=== PATIENT | female | born 1965 | race Caucasian/White ===

== ENCOUNTER 2021-01-27 13:55 | Inpatient (IN) | payer SELFPAY ==
[~2021-01-27] VITALS: Ht 172.7 cm; Wt 67.1 kg
[2021-01-27] MEDS ORDERED: ONDANSETRON PF 4 MG/2 ML VIAL. IVP ONE (14:15)
[2021-01-27] MEDS ORDERED: FAMOTIDINE 20 MG/2 ML VIAL IVP ONE (14:15)
[2021-01-27] MEDS ORDERED: IV NORMAL SALINE 1,000ML 1,000 ML IV ONE ×2 (14:15→17:30)
[2021-01-27 14:20] LABS: BASO % 1 % (0-3); EOS % 0 % (0-3); HEMOGLOBIN 15.8 g/dL (12.0-15.5); LYMPH # 1.4 x10^3/uL (1.0-4.8); LYMPH % 28 % (24-48); MEAN CORPUSCULAR HEMOGLOBIN 29 pg (25-35); MEAN CORPUSCULAR HGB CONC 34 g/dL (31-37); MEAN CORPUSCULAR VOLUME 87 fL (79-100); MONO # 0.5 x10^3/uL (0.0-1.1); MONO % 10 % (0-9); NEUT % 62 % (31-73); PLATELET COUNT 221 x10^3/uL (140-400); RED BLOOD COUNT 5.38 x10^6/uL (3.50-5.40); RED CELL DISTRIBUTION WIDTH 13.9 % (11.5-14.5); WHITE BLOOD COUNT 4.9 x10^3/uL (4.0-11.0)
[2021-01-27 14:25] LABS: CALCIUM 8.4 mg/dL (8.5-10.1); CREATININE 0.9 mg/dL (0.6-1.0); GFR 64.8
[2021-01-27] MEDS ORDERED: IOHEXOL 300 MG/ML 75 ML VIAL. IV ONE (14:30)
--- NOTE | 2021-01-27 14:46 | PHYS DOC ---
Past History Past Medical History: COPD Past Surgical History: No Surgical History Smoking: Cigarettes, Greater than 1 pack/day Alcohol Use: None Drug Use: None General Adult EDM: Chief Complaint: DIZZY/LIGHT HEADED HPI: HPI: Patient is a 55 year old female who presents with dizziness. Reports feeling lightheaded/dizzy since 01/24/21. The patient has had 4 episodes where she lost consciousness. Denies falling or head injury. She also reports headache, nasal congestion, productive cough, nausea/vomiting, and diarrhea. Patient describes being told she may have a form of blood cancer or fallopian tube related cancer 5 years ago. She never followed up with her test results at that time. Review of Systems: Review of Systems: Constitutional: Reports fatigue and generalized weakness; Denies fever or chills Eyes: Denies redness or eye pain HENT: Reports nasal congestion; Denies sore throat Respiratory: Reports cough; Denies shortness of breath Cardiovascular: Denies chest pain or palpitations GI: Reports nausea/vomiting and diarrhea; Denies abdominal pain : Denies dysuria or hematuria Musculoskeletal: Denies back pain or joint pain Integument: Denies rash or skin lesions Neurologic: Reports headache; Denies focal weakness or sensory changes Complete systems were reviewed and found to be within normal limits, except as documented in this note. Current Medications: Current Meds: Current Medications Medications (Trade) Dose Ordered Sig/Jenna Start Time Stop Time Status Last Admin Dose Admin Famotidine (Pepcid Vial) 20 mg 1X ONCE 01/27/21 14:15 01/27/21 14:16 DC 01/27/21 14:22 20 MG Ondansetron HCl (Zofran) 4 mg 1X ONCE 01/27/21 14:15 01/27/21 14:16 DC 01/27/21 14:22 4 MG Sodium Chloride 1,000 ml @ 1,000 mls/hr 1X ONCE 01/27/21 14:15 01/27/21 15:14 01/27/21 14:22 1,000 MLS/HR Allergies: Allergies: Allergies Coded Allergies Type Severity Reaction Last Updated Verified Penicillins Allergy Unknown 01/27/21 Yes aspirin Allergy Unknown 01/27/21 Yes codeine Allergy Unknown 01/27/21 Yes Physical Exam: PE: Constitutional: Unkempt, well nourished, in no acute distress HENT: Normocephalic, atraumatic Eyes: PERRL, EOMI, conjunctiva normal, no discharge Neck: Normal range of motion, no tenderness, supple Lungs & Thorax: Decreased breath sounds BL, no respiratory distress, equal chest rise and fall Abdomen: Soft, no tenderness, non-distended, no bruising or erythema Skin: Warm, dry, no erythema, no rash Back: No tenderness, no CVA tenderness Extremities: No tenderness, ROM intact, no edema Neurologic: Alert and oriented X 3, normal motor function, normal sensory function, no focal deficits noted Psychologic: Affect normal, judgment normal Current Patient Data: Labs: Laboratory Tests Test 01/27/21 14:01 White Blood Count 4.9 x10^3/uL (4.0-11.0) Red Blood Count 5.38 x10^6/uL (3.50-5.40) Hemoglobin 15.8 g/dL (12.0-15.5) H Hematocrit 47.0 % (36.0-47.0) Mean Corpuscular Volume 87 fL (79-100) Mean Corpuscular Hemoglobin 29 pg (25-35) Mean Corpuscular Hemoglobin Concent 34 g/dL (31-37) Red Cell Distribution Width 13.9 % (11.5-14.5) Platelet Count 221 x10^3/uL (140-400) Neutrophils (%) (Auto) 62 % (31-73) Lymphocytes (%) (Auto) 28 % (24-48) Monocytes (%) (Auto) 10 % (0-9) H Eosinophils (%) (Auto) 0 % (0-3) Basophils (%) (Auto) 1 % (0-3) Neutrophils # (Auto) 3.0 x10^3uL (1.8-7.7) Lymphocytes # (Auto) 1.4 x10^3/uL (1.0-4.8) Monocytes # (Auto) 0.5 x10^3/uL (0.0-1.1) Eosinophils # (Auto) 0.0 x10^3/uL (0.0-0.7) Basophils # (Auto) 0.0 x10^3/uL (0.0-0.2) Vital Signs: Vital Signs Date Time Temp Pulse Resp B/P (MAP) Pulse Ox O2 Delivery O2 Flow Rate FiO2 7/20/21 13:57 98.8 112 18 120/89 96 Room Air EKG: EK01/27/21 @ 1406 sinus tachycardia at 106 bpm, QRS 82 ms, QT/QTc 372/496 ms, no evidence of ischemia or ST segment changes, possible Biatrial enlargment, inverted p waves observed in leads V1 and V2 Radiology/Procedures: Radiology/Procedures: PROCEDURE: CT HEAD WO CONTRAST PQRS Compliance Statement: One or more of the following individualized dose reduction techniques were utilized for this examination: 1. Automated exposure control 2. Adjustment of the mA and/or kV according to patient size 3. Use of iterative reconstruction technique CT HEAD WITHOUT CONTRAST History: Reason: weakness, headache / Spl. Instructions: / History: Comparison: None. Procedure: Axial images are obtained of the head from the skull base through the vertex without IV contrast. Findings: The ventricles and sulci are normal for the patient's age. No mass-effect, midline shift, hemorrhage, extra-axial fluid collection, or obvious acute infarction is identified. Basilar cisterns are patent. Bone windows demonstrate no acute calvarial abnormality. Mild mucosal thickening bilateral ethmoid sinuses. The other visualized paranasal sinuses are clear. Mastoid air cells are well aerated. IMPRESSION: No acute intracranial abnormality. Electronically signed by: Keyon Lucas MD (01/27/2021 3:08 PM) [id number] PROCEDURE: CT CHEST ABD PELVIS W/CONTRAST PQRS Compliance Statement: One or more of the following individualized dose reduction techniques were utilized for this examination: 1. Automated exposure control 2. Adjustment of the mA and/or kV according to patient size 3. Use of iterative reconstruction technique CT CHEST+ABD+PELVIS W Clinical Indication: Reason: weakness, right chest wall mass, N/V/D Comparison: None. Technique: Helical CT imaging of the chest, abdomen and pelvis is performed after 75 cc of Omnipaque 300 IV contrast. Oral contrast not administered. Findings: The visualized thyroid is symmetric. There is a nodular asymmetry in the outer left breast measuring up to 2.3 cm. No central pulmonary embolus. The great vessels are normal caliber. Subcentimeter mediastinal and bilateral hilar lymph nodes. No adenopathy is seen. The cardiac size is upper limits of normal. No pericardial effusion. Coronary artery disease. There is trace right pleural effusion. The central airways are patent. There is mild centrilobular and paraseptal emphysema in the upper lungs. Right upper lobe calcified granuloma. There is a 5 mm nodule in the right middle lobe, image 54. There is a subpleural nodule more inferiorly in the right middle lobe measuring 7 mm, image 62. There is mild bilateral lower lobe atelectasis or scarring. There is a part solid nodule in the right lower lobe measuring 5 mm, image 65. There is a thinly encapsulated fatty mass of the lower right lateral chest wall measuring on the order of 10.7 x 4.8 x 8.1 cm. Within the mass there a couple of coarse benign calcifications. Internally no soft tissue or enhancing component is identified. Tiny hypodensities in segments 1 and 2 of the liver are too small to further characterize. There is a probable hemangioma in segment 6 of the liver measuring 2.7 cm. Peripheral nodular enhancement of the lesion is partially filled in between the chest and abdomen acquisition. The gallbladder, spleen, pancreas, and right adrenal gland are normal. There is an indeterminate left adrenal nodule measuring 1.5 cm. There is a left renal angiomyolipoma measuring up to 2.1 cm. No follow-up is suggested. Small cysts of the right kidney do not require follow-up. No hydronephrosis. The stomach is unremarkable. No dilated small bowel. The appendix is normal. There is no colon wall thickening. The urinary bladder is normal. The ovaries are similar in size. Uterus unremarka ble. No pelvic free fluid. No acute bone abnormality. IMPRESSION: 1. Trace right pleural effusion. 2. Mild upper lobe emphysema. 3. Nodular asymmetry in the outer left breast. Recommend outpatient bilateral diagnostic mammogram and if needed left breast ultrasound. 4. There are a couple of 5-7 mm noncalcified pulmonary nodules. Recommend noncontrast CT chest follow-up in 12 months per Fleischner Society guidelines. 5. There is a fatty mass of the lateral right chest wall that is probably a lipoma. 6. Indeterminate left adrenal nodule. 7. Left renal angiomyolipoma. 8. Probable right hepatic hemangioma. Electronically signed by: Keyon Lucas MD (01/27/2021 3:27 PM) [id number] Heart Score: C/O Chest Pain: N/A Course & Med Decision Making: Course & Med Decision Making Pertinent Labs and Imaging studies reviewed. (See chart for details) Patient is a 55 year old female who presented with dizziness/lightheadedness. EKG showed sinus tachycardia, possible biatrial enlargment, and no acute ST segment changes. Troponin was 0.056. Aspirin not given due to allergy. CT head without contrast showed no acute intracranial abnormality. CT chest/abdomen/pelvis without acute process but did note some incidental findings. Copy of CT report provided to patient to give to her PCP for future reevaluation. Patient requiring admission for further evaluation and treatment. Discussed with Dr. Erickson (hospitalist) who is in agreement with admission. Discussed case with Dr. Dhillon (cardiology) who is in agreement with consultation. In agreement with keeping patient at [facility] at this time and serial troponins as elevated likely associated with dehydration. Discussed findings and plan with patient, who acknowledges understanding and agreement. COVID-19 CRITERIA: The patient was evaluated during the global COVID-19 pandemic, and that diagnosis was suspected/considered upon their initial presentation. Their evaluation, treatment and testing was consistent with current guidelines for patients who present with complaints or symptoms that may be related to COVID-19. [employer] Disclaimer: [employer] Disclaimer: This electronic medical record was generated, in whole or in part, using a voice recognition dictation system. Departure Departure: Impression: Primary Impression: Syncope Qualified Codes: R55 - Syncope and collapse Additional Impressions: Nausea vomiting and diarrhea Suspected 2019 novel coronavirus infection Elevated troponin Dehydration Incidental lung nodule, > 3mm and < 8mm Abnormal finding on radiology exam Disposition: ADMITTED INPATIENT Admitting Physician: Anna Marie Erickson Condition: STABLE Referrals: PCP,NO (PCP) COVID-19 Assessment COVID-19 Patient Risks: Age 65 or older: No Sign of co-morbidity: No Exp to person + for COVID: No Exp to PUI: No Travel from affected area: No Lower respiratory symptoms: No Fever: No Other: Yes PPE Use: Full PPE with N95 mask or PAPR: Yes Critical Care Time Critical care time was 30 minutes which includes time at bedside, spent in discussion of patient's care with specialists and/or family members, with interpretation of laboratory and/or radiological studies and is exclusive of procedures. KRISTEN MCGEE DO Jan 27, 2021 14:45
[2021-01-27 14:51] LABS: ALBUMIN 3.4 g/dL (3.4-5.0); ALBUMIN/GLOBULIN RATIO 0.9 (1.0-1.7); TOTAL BILIRUBIN 0.6 mg/dL (0.2-1.0)
--- NOTE | 2021-01-27 15:10 | RAD ---
PQRS Compliance Statement: One or more of the following individualized dose reduction techniques were utilized for this examinat ion: 1. Automated exposure control 2. Adjustment of the mA and/or kV according to patient size 3. Use of iterative reconstruction technique CT HEAD WITHOUT CONTRAST History: Reason: weakness, headache / Spl. Instructions: / History: Comparison: None. Procedure: Axial images are obtained of the head from the skull base through the vertex without IV co ntrast. Findings: The ventricles and sulci are normal for the patient's age. No mass-effect, midline shift, hemorrhage, extra-axial fluid collection, or obvious acute infarction is identified. Basilar cisterns are patent. Bone windows demonstrate no acute calvarial abnormality. Mild mucosal thickening bilateral ethmoid sinuses. The other visualized paranasal sinuses are clear. Mastoid air cells are well aerated. IMPRESSION: No acute intracranial abnormality. Electronically signed by: Keyon Lucas MD (01/27/2021 3:08 PM) [id number]
--- NOTE | 2021-01-27 15:29 | RAD ---
PQRS Compliance Statement: One or more of the following individualized dose reduction techniques were utilized for this examinat ion: 1. Automated exposure control 2. Adjustment of the mA and/or kV according to patient size 3. Use of iterative reconstruction technique CT CHEST+ABD+PELVIS W Clinical Indication: Reason: weakness, right chest wall mass, N/V/D Comparison: None. Technique: Helical CT imaging of the chest, abdomen and pelvis is performed after 75 cc of Omnipaque 300 IV contrast. Oral contrast not administered. Findings: The visualized thyroid is symmetric. There is a nodular asymmetry in the outer left breast measuring up to 2.3 cm. No central pulmonary embolus. The great vessels are normal caliber. Subcentimeter mediastinal and marco antonio ateral hilar lymph nodes. No adenopathy is seen. The cardiac size is upper limits of normal. No peric ardial effusion. Coronary artery disease. There is trace right pleural effusion. The central airways are patent. There is mild centrilobular an d paraseptal emphysema in the upper lungs. Right upper lobe calcified granuloma. There is a 5 mm nodu le in the right middle lobe, image 54. There is a subpleural nodule more inferiorly in the right midd le lobe measuring 7 mm, image 62. There is mild bilateral lower lobe atelectasis or scarring. There i s a part solid nodule in the right lower lobe measuring 5 mm, image 65. There is a thinly encapsulated fatty mass of the lower right lateral chest wall measuring on the orde r of 10.7 x 4.8 x 8.1 cm. Within the mass there a couple of coarse benign calcifications. Internally no soft tissue or enhancing component is identified. Tiny hypodensities in segments 1 and 2 of the liver are too small to further characterize. There is a probable hemangioma in segment 6 of the liver measuring 2.7 cm. Peripheral nodular enhancement of th e lesion is partially filled in between the chest and abdomen acquisition. The gallbladder, spleen, pancreas, and right adrenal gland are normal. There is an indeterminate left adrenal nodule measuring 1.5 cm. There is a left renal angiomyolipoma measuring up to 2.1 cm. No fol low-up is suggested. Small cysts of the right kidney do not require follow-up. No hydronephrosis. The stomach is unremarkable. No dilated small bowel. The appendix is normal. There is no colon wall t hickening. The urinary bladder is normal. The ovaries are similar in size. Uterus unremarkable. No pelvic free f luid. No acute bone abnormality. IMPRESSION: 1. Trace right pleural effusion. 2. Mild upper lobe emphysema. 3. Nodular asymmetry in the outer left breast. Recommend outpatient bilateral diagnostic mammogram a nd if needed left breast ultrasound. 4. There are a couple of 5-7 mm noncalcified pulmonary nodules. Recommend noncontrast CT chest follo w-up in 12 months per Fleischner Society guidelines. 5. There is a fatty mass of the lateral right chest wall that is probably a lipoma. 6. Indeterminate left adrenal nodule. 7. Left renal angiomyolipoma. 8. Probable right hepatic hemangioma. Electronically signed by: Keyon Lucas MD (01/27/2021 3:27 PM) [id number]
[2021-01-27 15:54] LABS: BILIRUBIN,URINE NEG (NEG); CLARITY,URINE CLEAR; COLOR,URINE YELLOW; GLUCOSE,URINE NEG (NEG); NITRITE,URINE POS (NEG); UROBILINOGEN,URINE 0.2 mg/dL (0.2 mg/dL)
[2021-01-27 15:55] LABS: RBC,URINE OCC /HPF (0-2)
[2021-01-27 15:56] LABS: BACTERIA,URINE MANY /HPF (0-FEW); SQUAMOUS EPITHELIAL CELL,UR MOD /LPF
[2021-01-27] MEDS ORDERED: cefTRIAXone SODIUM 1 GM VIAL ONE (16:48)
[2021-01-27] MEDS ORDERED: IV NORMAL SALINE 50ML 50 ML ONE (16:48)
[2021-01-27] MEDS ORDERED: IV NORMAL SALINE 1,000ML 1,000 ML IV SCH (17:00)
[2021-01-27] MEDS ORDERED: ACETAMINOPHEN 325 MG TABLET PO PRN (17:00)
[2021-01-27] MEDS ORDERED: ONDANSETRON PF 4 MG/2 ML VIAL. IVP PRN (17:00)
[2021-01-27 18:40] VITALS: BP 121/80
[2021-01-27 23:50] VITALS: BP 121/78
--- NOTE | 2021-01-28 00:19 | EKG ---
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
[2021-01-28 06:32] VITALS: BP 116/85
--- NOTE | 2021-01-28 07:44 | PDOC2 ---
CARDIAC CONSULT DATE OF CONSULT DOS: DATE: 01/28/21 TIME: 07:35 REASON FOR CONSULT Reason for Consult syncope, elevated troponin REFERRING PHYSICIAN Referring Physician Dr. Wells SOURCE Source: Chart review, Patient HPI History of Present Illness This is a 55 yo female who presented secondary to dizziness with syncopal episode. Patient reports multiple near syncope/syncopal episodes yesterday. Reports feeling dizzy/lightheaded and then has brief periods of loss of consciousness while sitting. No chest pain, shortness of breath, diaphoresis, or nausea/vomiting. Do reports having diarrhea this am. No recent fevers or illness. No one at home sick. Test + for COVID here. PAST MEDICAL HISTORY Cardiovascular: No pertinent hx Pulmonary: COPD PAST SURGICAL HISTORY Past Surgical History: Tubal Ligation FAMILY HISTORY Family History: Cancer, Other (AFIB) SOCIAL HISTORY Smoke: 1 pack per day Drugs: None Lives: with Family CURRENT MEDICATIONS Current Medications Current Medications Ondansetron HCl (Zofran) 4 mg 1X ONCE IVP Last administered on 01/27/21at 14:22; Start 01/27/21 at 14:15; Stop 01/27/21 at 14:16; Status DC Famotidine (Pepcid Vial) 20 mg 1X ONCE IVP Last administered on 01/27/21at 14:22; Start 01/27/21 at 14:15; Stop 01/27/21 at 14:16; Status DC Sodium Chloride 1,000 ml @ 1,000 mls/hr 1X ONCE IV Last administered on 01/27/21at 14:22; Start 01/27/21 at 14:15; Stop 01/27/21 at 15:14; Status DC Iohexol (Omnipaque 300 Mg/ml) 75 ml 1X ONCE IV Last administered on 01/27/21at 14:42; Start 01/27/21 at 14:30; Stop 01/27/21 at 14:31; Status DC Ceftriaxone Sodium 1 gm/ Sodium Chloride 50 ml @ 100 mls/hr 1X ONCE IV Last administered on 01/27/21at 16:57; Start 01/27/21 at 16:30; Stop 01/27/21 at 16:59; Status DC Sodium Chloride 50 ml @ As Directed STK-MED ONCE .ROUTE ; Start 01/27/21 at 16:48; Stop 01/27/21 at 16:49; Status DC Ceftriaxone Sodium (Rocephin) 1 gm STK-MED ONCE .ROUTE ; Start 01/27/21 at 16:48; Stop 01/27/21 at 16:49; Status DC Ondansetron HCl (Zofran) 4 mg PRN Q4HRS PRN IVP NAUSEA/VOMITING; Start 01/27/21 at 17:00; Stop 01/28/21 at 16:59 Sodium Chloride 1,000 ml @ 100 mls/hr Q10H IV Last administered on 01/27/21at 23:38; Start 01/27/21 at 17:00; Stop 01/28/21 at 02:59; Status DC Acetaminophen (Tylenol) 650 mg PRN Q4HRS PRN PO FEVER > 100.3'F; Start 01/27/21 at 17:00; Stop 01/28/21 at 16:59 Sodium Chloride 1,000 ml @ 1,000 mls/hr 1X ONCE IV Last administered on 01/27/21at 17:25; Start 01/27/21 at 17:30; Stop 01/27/21 at 18:29; Status DC ALLERGIES Allergies: Coded Allergies: Penicillins (Verified Allergy, Unknown, 01/27/21) aspirin (Verified Allergy, Unknown, 01/27/21) codeine (Verified Allergy, Unknown, 01/27/21) potassium (Verified Allergy, Unknown, 01/27/21) HIVES ROS Review of Systems 14 point ROS conducted with pertinent positives noted above in HPI PHYSICAL EXAM General: Alert, Oriented X3, Cooperative, No acute distress HEENT: Atraumatic Lungs: Other (on RA) Heart: Regular rate (SR/ST) Abdomen: No tenderness Extremities: No edema, Normal pulses Skin: No breakdown Neuro: Normal speech, Sensation intact Psych/Mental Status: Mental status NL, Mood NL MUSCULOSKELETAL: Osteoarthritic changes both hands VITALS Vital Signs Vital Signs Date Time Temp Pulse Resp B/P (MAP) Pulse Ox O2 Delivery O2 Flow Rate FiO2 01/28/21 06:32 98.8 117 18 116/85 (95) 98 Room Air LABS LABS Laboratory Tests Test 01/27/21 14:01 01/27/21 14:26 01/27/21 15:15 01/27/21 17:40 White Blood Count 4.9 x10^3/uL (4.0-11.0) Red Blood Count 5.38 x10^6/uL (3.50-5.40) Hemoglobin 15.8 g/dL (12.0-15.5) Hematocrit 47.0 % (36.0-47.0) Mean Corpuscular Volume 87 fL (79-100) Mean Corpuscular Hemoglobin 29 pg (25-35) Mean Corpuscular Hemoglobin Concent 34 g/dL (31-37) Red Cell Distribution Width 13.9 % (11.5-14.5) Platelet Count 221 x10^3/uL (140-400) Neutrophils (%) (Auto) 62 % (31-73) Lymphocytes (%) (Auto) 28 % (24-48) Monocytes (%) (Auto) 10 % (0-9) Eosinophils (%) (Auto) 0 % (0-3) Basophils (%) (Auto) 1 % (0-3) Neutrophils # (Auto) 3.0 x10^3uL (1.8-7.7) Lymphocytes # (Auto) 1.4 x10^3/uL (1.0-4.8) Monocytes # (Auto) 0.5 x10^3/uL (0.0-1.1) Eosinophils # (Auto) 0.0 x10^3/uL (0.0-0.7) Basophils # (Auto) 0.0 x10^3/uL (0.0-0.2) Sodium Level 139 mmol/L (136-145) Potassium Level 4.0 mmol/L (3.5-5.1) Chloride Level 101 mmol/L (98-107) Carbon Dioxide Level 28 mmol/L (21-32) Anion Gap 10 (6-14) Blood Urea Nitrogen 14 mg/dL (7-20) Creatinine 0.9 mg/dL (0.6-1.0) Estimated GFR (Cockcroft-Gault) 64.8 BUN/Creatinine Ratio 16 (6-20) Glucose Level 124 mg/dL (70-99) Lactic Acid Level 1.6 mmol/L (0.4-2.0) Calcium Level 8.4 mg/dL (8.5-10.1) Magnesium Level 2.0 mg/dL (1.8-2.4) Total Bilirubin 0.6 mg/dL (0.2-1.0) Aspartate Amino Transf (AST/SGOT) 42 U/L (15-37) Alanine Aminotransferase (ALT/SGPT) 47 U/L (14-59) Alkaline Phosphatase 108 U/L (46-116) Creatine Kinase 111 U/L (26-192) Creatine Kinase MB (Mass) 1.5 ng/mL (0.0-3.6) Creatine Kinase MB Relative Index 1.4 % (0-4) Troponin I Quantitative 0.056 ng/mL (0-0.055) 0.061 ng/mL (0-0.055) Total Protein 7.0 g/dL (6.4-8.2) Albumin 3.4 g/dL (3.4-5.0) Albumin/Globulin Ratio 0.9 (1.0-1.7) Lipase 84 U/L (73-393) Coronavirus (COVID-19)(PCR) Positive (NEGATIVE) Urine Collection Type Unknown Urine Color Yellow Urine Clarity Clear Urine pH 6.5 Urine Specific [place] 1.010 Urine Protein Neg (NEG-TRACE) Urine Glucose (UA) Neg mg/dL (NEG) Urine Ketones (Stick) Neg mg/dL (NEG) Urine Blood Trace (NEG) Urine Nitrite Pos (NEG) Urine Bilirubin Neg (NEG) Urine Urobilinogen Dipstick 0.2 mg/dL (0.2 mg/dL) Urine Leukocyte Esterase Neg (NEG) Urine RBC Occ /HPF (0-2) Urine WBC 1-4 /HPF (0-4) Urine Squamous Epithelial Cells Mod /LPF Urine Bacteria Many /HPF (0-FEW) Test 01/27/21 20:54 Troponin I Quantitative 0.051 ng/mL (0-0.055) ASSESSMENT/PLAN Assessment/Plan 1. Dizziness, syncope. Most probably secondary to volume depletion 2. Hypotension; now adequate s/p IVF 3. Mild troponin elevation; peak 0.061. Most probably type II, demand ischemia 4. COVID + 5. UTI 6. Sinus tachycardia; physiologic secondary to above. Recommendations Lipids, TSH ASA Monitor tele Outpatient echo to assess LV systolic function when COVID recovered Could consider outpatient event monitor, although low suspicion for arrhythmia Treatment of UTI as per IM Supportive care KAMILA MELVIN APRN Jan 28, 2021 07:44
[2021-01-28] MEDS: ASPIRIN ENTERIC COATED 81 MG TABLET.DR. PO SCH (08:00)
[2021-01-28 09:00] VITALS: BP 106/73
[2021-01-28 09:01] VITALS: BP_SYST 102; BP_SYST 96; BP_DIAS 70; BP_DIAS 74
[2021-01-28 11:34] VITALS: BP 123/84
--- NOTE | 2021-01-28 14:04 | HP ---
ATTENDING PHYSICIAN: Dr. Jansen. CHIEF COMPLAINT: Dizziness and weakness. HISTORY OF PRESENT ILLNESS: The patient is a 55-year-old female admitted through the ED for episode where she lost consciousness. She denies falling or injury. She has nonspecific headache, some congestion, productive cough and she tested positive for coronavirus. Symptoms are fairly minimal. She has adequate saturations on room air. She does not have a local physician. She is a smoker of 1 pack of cigarettes daily. Her chest x-ray was not that significant for pneumonia. She is admitted then for further evaluation, near syncopal episode as well as elevation of cardiac enzymes. PAST MEDICAL HISTORY: Significant for her COPD. SOCIAL HISTORY: She continues to smoke greater than a pack of cigarettes a day. She has not had any recent travel. She has significant poor social situation. She is homeless. She and her have been living out of a camper. 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 They had been laid off for a while and just recently got back to working. CURRENT MEDICATIONS: None. ALLERGIES: SHE HAS ALLERGIES TO PENICILLIN, ASPIRIN, CODEINE AND POTASSIUM. EXACT REACTION IS UNCLEAR. FAMILY HISTORY: Noncontributory. REVIEW OF SYSTEMS: Significant for generalized weakness, low-grade fevers, nonproductive cough, just simply not feeling well. Once again, she does not have a home. She has been living out of a camper. All other systems reviewed and turned to be negative. PHYSICAL EXAMINATION: GENERAL: When I saw her, this is a pleasant, middle-aged female. VITAL SIGNS: Showed a blood pressure of 106/73. She was afebrile, pulse rate was 82 and regular, oxygen saturation 97% on room air. HEENT: Head is without trauma. Pupils are reactive. Sclerae nonicteric. Oropharynx clear. NECK: Supple, no bruits. LUNGS: Minimal rhonchi at the bases. CARDIOVASCULAR: Showed regular heart tones. No gallops. ABDOMEN: Soft. EXTREMITIES: Without edema. NEUROLOGIC: Function focally intact. Speech is fluent. PERTINENT LABORATORY AND X-RAY STUDIES: Hemoglobin is 15.8 g/dL with a white count of 4900. Sodium was 139 mEq, nonfasting blood sugar 124. The first troponin was 0.056, slightly above our limits. Chest x-ray and CT head were done in the ED. Chest x-ray showed trace pleural effusion, upper lobe emphysema, noncalcified pulmonary nodules, left renal angiomyolipoma, probable hepatic hemangioma. No acute infiltrates identified. CT of the head showed no reported acute bleeds or strokes. Her coronavirus swab was indeed positive. ASSESSMENT: 1. A 55-year-old female with a near syncopal episode. 2. Elevation of cardiac enzymes due to stress demand. 3. Coronavirus infection. 4. . 5. Chronic obstructive pulmonary disease and continued tobacco addiction. PLAN: 1. Admit to the inpatient unit. 2. Serial cardiac enzymes. 3. Formal cardiology consultation. 4. Empiric Decadron. MAXWELL DR: Kashmir TID: [id number]
[2021-01-28 14:40] LABS: THYROID STIM HORMONE (TSH) 2.556 uIU/mL (0.358-3.740)
[2021-01-28 15:08] VITALS: BP 123/84
[2021-01-28 19:30] VITALS: BP 111/84
[2021-01-29 06:18] VITALS: BP 121/85
--- NOTE | 2021-01-29 08:18 | PDOC ---
CARDIO Progress Notes Date & Time Date of Service DATE: 01/29/21 TIME: 08:18 Time of Evaluation 08:18 Subjective Notes No chest pain, palpitations, dizziness, syncope Vitals Vitals Vital Signs Date Time Temp Pulse Resp B/P (MAP) Pulse Ox O2 Delivery O2 Flow Rate FiO2 01/29/21 06:18 98.8 108 16 121/85 (97) 96 Room Air Weight Weight [ ] Input and Output I.O. Intake and Output 01/29/21 06:59 Intake Total 240 ml Balance 240 ml Intake Oral 240 ml # Voids 1 Laboratory Labs Laboratory Tests Test 01/27/21 14:01 01/27/21 14:26 01/27/21 15:15 01/27/21 17:40 White Blood Count 4.9 x10^3/uL (4.0-11.0) Red Blood Count 5.38 x10^6/uL (3.50-5.40) Hemoglobin 15.8 g/dL (12.0-15.5) Hematocrit 47.0 % (36.0-47.0) Mean Corpuscular Volume 87 fL (79-100) Mean Corpuscular Hemoglobin 29 pg (25-35) Mean Corpuscular Hemoglobin Concent 34 g/dL (31-37) Red Cell Distribution Width 13.9 % (11.5-14.5) Platelet Count 221 x10^3/uL (140-400) Neutrophils (%) (Auto) 62 % (31-73) Lymphocytes (%) (Auto) 28 % (24-48) Monocytes (%) (Auto) 10 % (0-9) Eosinophils (%) (Auto) 0 % (0-3) Basophils (%) (Auto) 1 % (0-3) Neutrophils # (Auto) 3.0 x10^3uL (1.8-7.7) Lymphocytes # (Auto) 1.4 x10^3/uL (1.0-4.8) Monocytes # (Auto) 0.5 x10^3/uL (0.0-1.1) Eosinophils # (Auto) 0.0 x10^3/uL (0.0-0.7) Basophils # (Auto) 0.0 x10^3/uL (0.0-0.2) Sodium Level 139 mmol/L (136-145) Potassium Level 4.0 mmol/L (3.5-5.1) Chloride Level 101 mmol/L (98-107) Carbon Dioxide Level 28 mmol/L (21-32) Anion Gap 10 (6-14) Blood Urea Nitrogen 14 mg/dL (7-20) Creatinine 0.9 mg/dL (0.6-1.0) Estimated GFR (Cockcroft-Gault) 64.8 BUN/Creatinine Ratio 16 (6-20) Glucose Level 124 mg/dL (70-99) Lactic Acid Level 1.6 mmol/L (0.4-2.0) Calcium Level 8.4 mg/dL (8.5-10.1) Magnesium Level 2.0 mg/dL (1.8-2.4) Total Bilirubin 0.6 mg/dL (0.2-1.0) Aspartate Amino Transf (AST/SGOT) 42 U/L (15-37) Alanine Aminotransferase (ALT/SGPT) 47 U/L (14-59) Alkaline Phosphatase 108 U/L (46-116) Creatine Kinase 111 U/L (26-192) Creatine Kinase MB (Mass) 1.5 ng/mL (0.0-3.6) Creatine Kinase MB Relative Index 1.4 % (0-4) Troponin I Quantitative 0.056 ng/mL (0-0.055) 0.061 ng/mL (0-0.055) Total Protein 7.0 g/dL (6.4-8.2) Albumin 3.4 g/dL (3.4-5.0) Albumin/Globulin Ratio 0.9 (1.0-1.7) Lipase 84 U/L (73-393) Coronavirus (COVID-19)(PCR) Positive (NEGATIVE) Urine Collection Type Unknown Urine Color Yellow Urine Clarity Clear Urine pH 6.5 Urine Specific [place] 1.010 Urine Protein Neg (NEG-TRACE) Urine Glucose (UA) Neg mg/dL (NEG) Urine Ketones (Stick) Neg mg/dL (NEG) Urine Blood Trace (NEG) Urine Nitrite Pos (NEG) Urine Bilirubin Neg (NEG) Urine Urobilinogen Dipstick 0.2 mg/dL (0.2 mg/dL) Urine Leukocyte Esterase Neg (NEG) Urine RBC Occ /HPF (0-2) Urine WBC 1-4 /HPF (0-4) Urine Squamous Epithelial Cells Mod /LPF Urine Bacteria Many /HPF (0-FEW) Triglycerides Level 79 mg/dL (0-150) Cholesterol Level 120 mg/dL (0-200) LDL Cholesterol, Calculated 72 mg/dL (0-100) VLDL Cholesterol, Calculated 15 mg/dL (0-40) Non-HDL Cholesterol Calculated 87 mg/dL (0-129) HDL Cholesterol 33 mg/dL (40-60) Cholesterol/HDL Ratio 3.0 Thyroid Stimulating Hormone (TSH) 2.556 uIU/mL (0.358-3.740) Test 01/27/21 20:54 Troponin I Quantitative 0.051 ng/mL (0-0.055) Physical Exams HEENT: Neck Supple W Full Motion Lungs: Other (on RA) Heart: RRR (SR/ST- rate 110 ) Neurology: alert, oriented, follow commands Assessment Assessment 1. Dizziness, syncope. Most probably secondary to volume depletion. Resolved following hydration. No acute events on tele 2. Hypotension; now adequate s/p IVF 3. Mild troponin elevation; peak 0.061. Most probably type II, demand ischemia. CP free 4. COVID + 5. UTI 6. Sinus tachycardia; physiologic secondary to above. Recommendations Outpatient echo to assess LV systolic function when COVID recovered Follow up in our office. Contact information provided Treatment of UTI, COVID as per IM Supportive care KAMILA MELVIN APRN Jan 29, 2021 08:18
--- NOTE | 2021-01-29 12:35 | DS ---
DATE OF DISCHARGE: 01/29/2021 ATTENDING PHYSICIAN: Dr. Jansen. FINAL DISCHARGE DIAGNOSES: 1. Near syncope, resolved. 2. Mild dehydration. 3. Elevation of cardiac enzymes due to stress demand. 4. Incidental finding of positive coronavirus infection. 5. Chronic obstructive pulmonary disease and continued tobacco addiction. HISTORY AND PHYSICAL: The patient is a 55-year-old female admitted with weakness, mild dehydration and near syncopal episode. She had a slight bump in her cardiac enzyme. She is a smoker. She also tested positive for coronavirus. Her chest x-ray was actually clear. OBJECTIVE: Please see the dictated note. PERTINENT LABORATORY AND X-RAY STUDIES: CBC, chemistry panel were identified. Initial troponin 0.056, 0.061 and came down to 0.051. These are right at the limits of our lab, which is cut of at 0.056. So, she is right at the borderline limit. Her rhythm was regular. She had no further symptoms. COURSE IN THE HOSPITAL: The patient had formal Cardiology consultation. They felt that the slight elevation was due to stress demand ischemia. Chest x-ray was clear. She was given steroids and IV fluids with marked improvement. By the third hospital day, her vital signs stable. She was afebrile. Her oxygen saturations were 96% on room air. Strong encouragement to avoid further alcohol use. I sent her home with prednisone 40 mg p.o. daily. She is still contagious and should be in quarantine for at least 7 days. She was discharged from our hospital in stable condition with explicit drug and followup care. BRIANDA DR: Kashmir TID: [id number]
--- OUTSIDE RECORDS SUMMARY | 2021-01-29 13:01 | XMS REPORT ---
Author Author [facility] Physician S On license of [facility] Organization [facility] Physician S [facility] Address Unknown Phone Unavailable Care Team Providers Care Research Animal Facility Supervisor Name Role Phone vishCathie Balbuena Unavailable [phone] PROBLEMS No Information ALLERGIES No Information ENCOUNTERS from 1965 to 2021-01-29 Encounter Location Date Provider Diagnosis [facility] [address] [facility] [address] [place] [address] Jan, Cathie clarkCHAYITOMAINE Encounter for pre- employment examination Z02.1 IMMUNIZATIONS No Information SOCIAL HISTORY Sex Assigned At : Social History Observation Description Sex Assigned At Unknown REASON FOR REFERRAL from 1965 to 2021-01-29 [facility] [place]erring Provider First Name NEYMAR Referring Provider Last Name KUSHAL Referring Provider Specialty Cardiovascular Disease Referred Provider N/A, [email or web address] Referred Provider Specialty Cardiology Referral Priority Routine VITAL SIGNS No information MEDICATIONS No Information PROCEDURES No Information RESULTS No Results REASON FOR VISIT drug screen Goals Section No Information Health Concerns No Information MEDICAL EQUIPMENT No Information MENTAL STATUS No Information FUNCTIONAL STATUS No Information ASSESSMENTS Encounter Date Diagnosis Assessment Notes Treatment Notes Treatm ent Clinical Notes Jan, Encounter for pre-employment examination (ICD-10 - Z02.1) PLAN OF TREATMENT Referrals Referral Date Details [employer] Next Appt Details as scheduled Reason: Insurance Providers Payer Name Payer Address Payer Phone Insured Name Patient Relati onship to Insured Coverage Start Date Coverage End Date [employer] [address] [facility] [phone] Neetu Linares self
== END 2021-01-29 10:21 | disposition home or self-care (01) | DRG 178 ==
LOC: ER 13:55 → 1 SOUTH 16:49
PROVIDERS: ADMIT Internal Medicine; ATTEND Internal Medicine
DX: U07.1 COVID-19 (principal); I24.8 Other forms of acute ischemic heart disease; N39.0 Urinary tract infection, site not specified; D17.71 Benign lipomatous neoplasm of kidney; D18.03 Hemangioma of intra-abdominal structures; E27.8 Other specified disorders of adrenal gland; E86.0 Dehydration; F17.210 Nicotine dependence, cigarettes, uncomplicated; J43.9 Emphysema, unspecified; N64.89 Other specified disorders of breast; Z59.0 Homelessness; I95.9 Hypotension, unspecified; Z88.0 Allergy status to penicillin; Z88.8 Allergy status to other drugs, medicaments and biological substances
CPT/HCPCS: 36415; 70450; 71260; 74177; 80053; 80061; 81001; 82553; 83605; 83690; 83735; 84443; 84484; 85025; 87086; 93005; 96361; 96374; 96375; J0696; J2405; J3490; Q9967; U0003; 99291-25; J7030

== ENCOUNTER 2021-02-14 11:21 | Inpatient (IN) | payer SELFPAY ==
[~2021-02-14] VITALS: Ht 172.7 cm; Wt 86.3 kg
[2021-02-14] MEDS ORDERED: IV NORMAL SALINE 1,000ML 1,000 ML IV ONE (11:30)
[2021-02-14 12:04] LABS: BASO # 0.1 x10^3/uL (0.0-0.2); BASO % 1 % (0-3); EOS # 0.1 x10^3/uL (0.0-0.7); EOS % 1 % (0-3); LYMPH % 22 % (24-48); MEAN CORPUSCULAR HEMOGLOBIN 29 pg (25-35); MEAN CORPUSCULAR HGB CONC 33 g/dL (31-37); MEAN CORPUSCULAR VOLUME 88 fL (79-100); MONO # 0.8 x10^3/uL (0.0-1.1); MONO % 9 % (0-9); NEUT # 6.4 x10^3uL (1.8-7.7); NEUT % 67 % (31-73); PLATELET COUNT 254 x10^3/uL (140-400); RED BLOOD COUNT 4.79 x10^6/uL (3.50-5.40); RED CELL DISTRIBUTION WIDTH 13.9 % (11.5-14.5); WHITE BLOOD COUNT 9.5 x10^3/uL (4.0-11.0)
--- NOTE | 2021-02-14 12:06 | RAD ---
EXAM: CT Head without IV contrast CLINICAL HISTORY: Reason: LEFT SIDED WEAKNESS/FLACIDNESS, LEFT VISION IMPAIRMENT, DYSPHAGIA COMPARISON: 01/27/2021 TECHNIQUE: Routine CT of the head without contrast. PQRS compliance statement - One or more of the following individualized dose reduction techniques wer e utilized for this study: 1. Automated exposure control 2. Adjustment of the mA and/or kV according to patient size 3. Use of iterative reconstruction technique FINDINGS: There is no evidence of hemorrhage, mass or extra-axial fluid collection. Loss of the de dios-white differentiation in the right frontal region extending into the insula consiste nt with acute infarct. This is new compared to prior CT 01/27/2021. Linear high density focus appears to connect to a dural vessel. There is no mass effect or shift of the intracranial structures. The ventricles, basilar cisterns and cortical sulci are normal in size and configuration for the dionna ents stated age. The cerebellum and brainstem are unremarkable. The calvarium demonstrates no evidence of fracture or focal lesion. There is normal aeration of the visualized paranasal sinuses and mastoid air cells. The visualized portions of the orbits are normal. IMPRESSION: 1. Loss of de dios-white differentiation in the right frontal region extending into the insula consiste nt with acute infarct. This is new compared to prior CT 01/27/2021. 2. No evidence for acute intracranial hemorrhage. Findings discussed with Bella Yen at 02/14/2021 11:58 AM. FOR INTERNAL CODING PURPOSES RESULT CODE: (C) Electronically signed by: Ariel Garcia MD (02/14/2021 12:03 PM) [id number]
[2021-02-14 12:15] LABS: CALCIUM 8.3 mg/dL (8.5-10.1); CREATININE 0.6 mg/dL (0.6-1.0); GFR 103.4; POTASSIUM 3.5 mmol/L (3.5-5.1)
--- NOTE | 2021-02-14 12:16 | PHYS DOC ---
Past History Past Medical History: COPD Past Surgical History: Cancer Surgery Smoking: Cigarettes, Greater than 1 pack/day Alcohol Use: None Drug Use: None General Adult EDM: Chief Complaint: NEURO SYMPTOMS/DEFICITS HPI: HPI: Patient is a 55-year-old female who presents with left-sided facial droop and left-sided weakness. Patient states "I was admitted a month ago after I passed out at home a couple of times". "I also had Covid at that time". "3 days ago I got out of bed tripped and hit my head on the door frame, and started having slurred speech ". "Then 2 days ago I started having left arm numbness, and then yesterday my left leg was also weak". "I just feel really tired and I have a really bad headache on the left side of my head". Denies chest pain, shortness of breath nausea/vomiting. Patient has history of COPD. Review of Systems: Review of Systems: Constitutional: Denies fever or chills Eyes: Denies change in visual acuity HENT: Denies nasal congestion or sore throat Respiratory: Denies cough or shortness of breath Cardiovascular: Denies chest pain or edema GI: Denies abdominal pain, nausea, vomiting, bloody stools or diarrhea : Denies dysuria Musculoskeletal: Denies back pain or joint pain Integument: Denies rash Neurologic: Reports headache, left-sided weakness Endocrine: Denies polyuria or polydipsia Lymphatic: Denies swollen glands Psychiatric: Denies depression or anxiety Current Medications: Current Meds: Current Medications Medications (Trade) Dose Ordered Sig/Jenna Start Time Stop Time Status Last Admin Dose Admin Sodium Chloride 1,000 ml @ 1,000 mls/hr 1X ONCE 02/14/21 11:30 02/14/21 12:29 Allergies: Allergies: Allergies Coded Allergies Type Severity Reaction Last Updated Verified Penicillins Allergy Unknown 01/27/21 Yes aspirin Allergy Unknown 01/27/21 Yes codeine Allergy Unknown 01/27/21 Yes potassium Allergy Unknown 01/27/21 Yes Physical Exam: PE: Constitutional: Well developed, well nourished, no acute distress, non-toxic appearance. HENT: Normocephalic, atraumatic, bilateral external ears normal, oropharynx moist Eyes: PERRLA, EOMI, conjunctiva normal, no discharge. Neck: Normal range of motion, no tenderness, supple, no stridor. Cardiovascular:Heart rate sinus tachycardia Lungs & Thorax: Bilateral breath sounds clear to auscultation Abdomen: Bowel sounds normal, soft, no tenderness, no masses, no pulsatile masses. Skin: Warm, dry, no erythema, no rash. Back: No tenderness, no CVA tenderness. Extremities: No tenderness, no cyanosis, no clubbing, ROM intact, no edema. Neurologic: Alert and oriented X 3, left-sided arm and leg weakness, left-sided facial droop Psychologic: Affect normal, judgement normal, mood normal. Current Patient Data: Labs: Laboratory Tests Test 02/14/21 11:33 02/14/21 11:37 Glucose (Fingerstick) 142 mg/dL (70-99) H White Blood Count 9.5 x10^3/uL (4.0-11.0) Red Blood Count 4.79 x10^6/uL (3.50-5.40) Hemoglobin 14.0 g/dL (12.0-15.5) Hematocrit 42.0 % (36.0-47.0) Mean Corpuscular Volume 88 fL (79-100) Mean Corpuscular Hemoglobin 29 pg (25-35) Mean Corpuscular Hemoglobin Concent 33 g/dL (31-37) Red Cell Distribution Width 13.9 % (11.5-14.5) Platelet Count 254 x10^3/uL (140-400) Neutrophils (%) (Auto) 67 % (31-73) Lymphocytes (%) (Auto) 22 % (24-48) L Monocytes (%) (Auto) 9 % (0-9) Eosinophils (%) (Auto) 1 % (0-3) Basophils (%) (Auto) 1 % (0-3) Neutrophils # (Auto) 6.4 x10^3uL (1.8-7.7) Lymphocytes # (Auto) 2.0 x10^3/uL (1.0-4.8) Monocytes # (Auto) 0.8 x10^3/uL (0.0-1.1) Eosinophils # (Auto) 0.1 x10^3/uL (0.0-0.7) Basophils # (Auto) 0.1 x10^3/uL (0.0-0.2) Vital Signs: Vital Signs Date Time Temp Pulse Resp B/P (MAP) Pulse Ox O2 Delivery O2 Flow Rate FiO2 02/14/21 11:25 97.8 108 18 118/86 97 Room Air EKG: EKG: Sinus tach, heart rate 112. No ST elevation or depression. [] Radiology/Procedures: Radiology/Procedures: []EXAM: CT Head without IV contrast CLINICAL HISTORY: Reason: LEFT SIDED WEAKNESS/FLACIDNESS, LEFT VISION IMPAIRMENT, DYSPHAGIA COMPARISON: 01/27/2021 TECHNIQUE: Routine CT of the head without contrast. PQRS compliance statement - One or more of the following individualized dose reduction techniques were utilized for this study: 1. Automated exposure control 2. Adjustment of the mA and/or kV according to patient size 3. Use of iterative reconstruction technique FINDINGS: There is no evidence of hemorrhage, mass or extra-axial fluid collection. Loss of the de dios-white differentiation in the right frontal region extending into the insula consistent with acute infarct. This is new compared to prior CT 01/27/2021. Linear high density focus appears to connect to a dural vessel. There is no mass effect or shift of the intracranial structures. The ventricles, basilar cisterns and cortical sulci are normal in size and configuration for the patients stated age. The cerebellum and brainstem are unremarkable. The calvarium demonstrates no evidence of fracture or focal lesion. There is normal aeration of the visualized paranasal sinuses and mastoid air cells. The visualized portions of the orbits are normal. IMPRESSION: 1. Loss of de dios-white differentiation in the right frontal region extending into the insula consistent with acute infarct. This is new compared to prior CT 01/27/2021. 2. No evidence for acute intracranial hemorrhage. Findings discussed with Bella Yen at 02/14/2021 11:58 AM. Heart Score: C/O Chest Pain: No Risk Factors: Risk Factors: DM, Current or recent (<one month) smoker, HTN, HLP, family history of CAD, obesity. Risk Scores: Score 0 - 3: 2.5% MACE over next 6 weeks - Discharge Home Score 4 - 6: 20.3% MACE over next 6 weeks - Admit for Clinical Observation Score 7 - 10: 72.7% MACE over next 6 weeks - Early Invasive Strategies Course & Med Decision Making: Course & Med Decision Making Pertinent Labs and Imaging studies reviewed. (See chart for details) [] 55-year-old female presents with left-sided facial droop, weakness to the left side, and some slurred speech. Patient states that she fell and hit her head on the door frame 3 days ago. Patient states that symptoms have progressed over the last 3 days and was unable to walk today due to weakness to her left leg. Patient reports that she was admitted a month ago after she had syncopal episodes at home. Past report shows patient was admitted after mildly elevated troponin level and Covid. Troponin was mildly elevated at 0.058. Troponin levels comparable to her last admission on 01/27. NIH of 5. CT of head shows acute infarct, right frontal temporal lobe. Discussed CT results with patient and . Explained to patient that she would need to be admitted to [facility] for further management. I spoke with Dr. Jansen who is going to be accepting patient at [facility]. Discussed CT results and mildly elevated troponin level with Dr. Jansen. Neurology was also consulted. Dr. Jansen requested patient started on Plavix. Due to left-sided facial droop, patient unable to pass swallow exam. Plavix held until patient is able to have a speech eval. Patient is hemodynamically stable upon admission. Dragon Disclaimer: Dragon Disclaimer: This electronic medical record was generated, in whole or in part, using a voice recognition dictation system. Departure Departure: Impression: Primary Impression: Acute CVA (cerebrovascular accident) Additional Impression: Weakness of left side of body Disposition: ADMITTED INPATIENT Admitting Physician: Sai Jansen Condition: STABLE Referrals: PCP,NO (PCP) Scripts No Active Prescriptions or Reported Meds NILA YEN APRN Feb 14, 2021 12:16
[2021-02-14 12:19] LABS: ALBUMIN 3.1 g/dL (3.4-5.0); ALBUMIN/GLOBULIN RATIO 0.9 (1.0-1.7); TOTAL BILIRUBIN 1.1 mg/dL (0.2-1.0); TOTAL PROTEIN 6.6 g/dL (6.4-8.2)
[2021-02-14] MEDS ORDERED: CLOPIDOGREL BISULFATE 75 MG TABLET PO ONE ×2 (13:00→16:45)
--- NOTE | 2021-02-14 13:13 | EKG ---
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
[2021-02-14 14:17] LABS: BILIRUBIN,URINE NEG (NEG); CLARITY,URINE CLEAR; COLOR,URINE YELLOW; GLUCOSE,URINE NEG (NEG); NITRITE,URINE POS (NEG); UROBILINOGEN,URINE 0.2 mg/dL (0.2 mg/dL)
[2021-02-14 14:18] LABS: BACTERIA,URINE MANY /HPF (0-FEW); SQUAMOUS EPITHELIAL CELL,UR MOD /LPF
--- NOTE | 2021-02-14 14:40 | NUR ---
The patient, CASS HUNTER, 55 y/o, F admitted by TERESO BUTTS MD, was given written information regarding hospital policies, unit procedures and contact persons. Valuables were checked and left with patient at bedside. Pt requested to use the bedside commode and also requested to eat. Pt reports she was able to eat at home and is not having difficulty swallowing post CVA. pt was able to drink water and eat a few bites of food without difficulty or coughing.
[2021-02-14 14:51] VITALS: BP 108/73
[2021-02-14 14:55] LABS: U PREG PATIENT NEGATIVE (NEG)
--- NOTE | 2021-02-14 15:12 | NUR ---
PER MELISSA PLAVIX HELD ON PT DUE TO SWALLOWING ISSUES
--- NOTE | 2021-02-14 17:41 | NUR ---
DR BUTTS CALLED AT [phone] AND NOTIFIED THAT THE PT DID NOT RECEIVE THE PLAVIX ORDERED IN THE ER DUE TRO PTS NPO STATUS. PT WAS IN ROOM EATING AND DRINKING WITHOUT DIFFICULTIES ND STATES SHES ATE FOR 3 DAYS LIKE THIS AND NO ISSUES. PT EDUCATED ON THE IMPORTANCE OF SWALLOWING PRECAUTIONS AND SILENT ASPIRATION. PT DID NOT WANT TO WAIT FOR SPEECH EVALUATION. NURSING STAFF DID BEDSIDE SWALLOW AND NO ISSUES NOTED FROM STAFF. DR BUTTS NOTIFIED AND SPEECH STILL ORDERED AND PLAVIX REORDERED AND GIVEN. DR TRUJILLO SAID THAT THE PT WOULD NOT BE SEEN BY SPEECH UNTIL TUESDAY. PT UP WITH ASSIST X 1 TO COMMODE THIS SHIFT. WILL CONTINUE TO MONITOR
[2021-02-14 18:58] VITALS: BP 100/65
--- NOTE | 2021-02-14 22:48 | CONS ---
DATE OF CONSULTATION: 02/14/2021 NEUROLOGY CONSULTATION REFERRING PHYSICIAN: Dr. Jansen. REASON FOR CONSULTATION: Left-sided weakness and numbness/stroke. HISTORY OF PRESENT ILLNESS: This is a 55-year-old right-handed female was admitted to the Emergency Room on account of a 2-day history of numbness and paresthesia along with left-sided weakness, more prominent on the right side. According to the patient three days ago she tripped at home and hit her head on the door frame. Subsequently, she started having slurred speech and numbness and paresthesia of the left upper and lower extremities along with weakness of the left leg. This morning she woke up with left facial drooping and continued to have numbness and paresthesia of the left upper and lower extremities. She stated her speech has been better, but she denies dysarthria or dysphagia. She also complains of a left frontal headaches started this morning as well. She denies chest pain, shortness of breath or palpitation. She denies abdominal pain, bowel or bladder dysfunction. On arrival to the Emergency Room, her blood pressure was 118/86. Nonenhanced head CT scan revealed evidence of right frontal acute infarct without acute intracranial hemorrhage. PAST MEDICAL HISTORY: Significant for COPD, headache, substance abuse. History of COVID-19 about a month ago. The patient refuses vaccination. PAST SURGICAL HISTORY: Positive for left ankle surgery, hysterectomy x3. FAMILY HISTORY: Father is unknown. Mother had breast cancer, atrial fibrillation and cervical cancer, probably oral cancer as well. SOCIAL HISTORY: The patient is . She had three children. 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 She denies alcohol drinking, but she is a heavy smoker for the last 40 years. Currently, she smokes approximately 1 pack of cigarettes daily. She has a history of drug abuse, substance abuse. REVIEW OF SYSTEMS: A 10-point review of system was performed as mentioned above in history of present illness. ALLERGIES: PENICILLIN, ASPIRIN, CODEINE AND POTASSIUM. CURRENT HOME MEDICATIONS: None. PHYSICAL EXAMINATION: GENERAL: Well-developed, well-nourished female in no acute distress. She weighs 83.4 kilos. VITAL SIGNS: Blood pressure 122/89, respiratory rate 18, pulse is 102, temperature is 97.8, oxygen saturation 96% on room air. HEENT: Normocephalic, atraumatic, otherwise unremarkable. NECK: Supple, negative for carotid bruit, lymphadenopathy or thyromegaly. LUNGS: Clear to A and P. CARDIOVASCULAR: Regular rate and rhythm, normal S1, S2. ABDOMEN: Soft. Bowel sounds positive. EXTREMITIES: Negative for cyanosis, clubbing or pedal edema. NEUROLOGIC: Mental status: The patient is alert and oriented x 3. Speech is fluent. There is no language dysfunction. Memory, judgment and abstracting thinking are normal. The patient denies hallucination or delusion. Cranial nerves: Visual hill are full. The pupils are equal and reactive to light and accommodation. The extraocular movements are intact. There is no nystagmus. There is a left facial asymmetry. Hearing is intact bilaterally. The palate is elevated symmetrically. Sternocleidomastoid muscles are powerful bilaterally. The patient shrugs her shoulders symmetrically, protrudes her tongue in the midline without fasciculation or atrophy. Motor Examination: No focal muscle bulk wasting. The tone is normal. The strength is 2/5 in the left upper extremity and 4/5 in the left lower extremity, on the right side is 5/5 throughout. Sensory examination revealed diminished pinprick and light touch senses over the left upper extremity in all dermatomes only. Sensory examination revealed normal to pinprick, light touch, vibratory and position senses. Deep tendon reflexes were symmetric and hypoactive with a positive Babinski on the left side. Gait not tested at this time. LABORATORY DATA: Nonenhanced CT scan as mentioned is abnormal, consistent with a right frontal acute infarct in MCA distribution. CBC revealed blood cells of 9.5, hemoglobin 14, hematocrit 42, platelet count 254,000. Chemistry: Sodium of 139, potassium 3.5, chloride 104, CO2 27, BUN 13, creatinine 0.6, glucose 124. Liver enzymes are normal. Troponin level is high at 0.058. Urinalysis is negative for urinary tract infections. Coagulation is normal. IMPRESSION: 1. Acute right middle cerebral artery infarct confined to the right frontal region of unknown etiology; however, the patient is a heavy smoker, may have contributed to the current symptoms. 2. Elevated troponin level. RECOMMENDATION: 1. Continue with Plavix 75 mg p.o. daily. 2. To obtain a carotid Doppler study, echocardiogram, and a cardiac consultation and physical therapy and fasting lipid profile. 3. Smoking cessation. JORGE DR: Joyce TID: [id number]
[2021-02-14 22:57] VITALS: BP 124/87
--- NOTE | 2021-02-15 04:32 | NUR ---
Transfers to bedside commode with minimal assist x1; left leg able to bear weight, however, pt states unable to move it at all; left arm flaccid; VSS; A&O x4; denies any pain; drinking fluids without any difficulty; sleeps intermittently; no voiced needs or concerns thus far.
[2021-02-15 05:58] VITALS: BP 124/86
[2021-02-15] MEDS ORDERED: CLOPIDOGREL BISULFATE 75 MG TABLET PO ONE (09:00)
[2021-02-15] MEDS: NICOTINE 21MG PATCH. TD SCH (09:15)
--- NOTE | 2021-02-15 10:51 | HP ---
ADMIT DATE: 02/14/2021 ATTENDING PHYSICIAN: Dr. Jansen. CHIEF COMPLAINT: Left-sided weakness. HISTORY OF PRESENT ILLNESS: The patient is a 55-year-old female well known to us from admission just 3 weeks ago. At that time, she did have COVID symptoms, which were mild. She also had some near syncopal episode as well as elevation of cardiac enzymes. She had a Cardiology consultation, which felt that her slight elevation of troponin was due to stress demand ischemia. She does have risk factors including heavy smoking history. At this time, she had symptoms for 3 days now. She has had left-sided facial droop and left-sided arm and leg weakness. She says she tripped at home 2 days ago, she started having left arm numbness and yesterday, the day before, her left leg was also weak. She felt tired. She had a mild headache. In the ED, the CT of the head done yesterday showed loss of white matter and ischemic changes involving the right frontal lobe extending into the right temporal lobe. Clinically, she has had a completed stroke duration of 3 days out. She is beyond the window of any intervention. She was given Plavix. She was admitted then to the hospital for further treatment evaluation, physical therapy and formal neurologic consultation. PAST MEDICAL HISTORY: Significant for COPD. She had a syncopal episode with admission 3 weeks ago. She also smokes greater than 2 packs of cigarettes a day. CURRENT MEDICATIONS: Reviewed. Prior to coming in, the patient was taking no scheduled drugs. She was given Plavix in the ED. ALLERGIES: SHE HAS ALLERGIES TO PENICILLIN, ASPIRIN, CODEINE AND POTASSIUM. FAMILY HISTORY: Her mom is alive at age 78. Her father's whereabouts and whether he is alive or not is unknown. She never knew him. She is . She and her were working part-time job at the [employer]. Unfortunately, they were living in a camper at site. She has no medical coverage. She has no primary care physician. Family history is again significant for breast cancer and cervical cancer. REVIEW OF SYSTEMS: Significant for the admission 3 weeks ago, she had COVID, she is over the symptoms. She denied any nausea. Her symptoms are related to her current acute stroke. All other systems reviewed and turned to be negative. PHYSICAL EXAMINATION: GENERAL: When I saw her, this is a pleasant female who appears older than stated age. INITIAL VITAL SIGNS: Showed a blood pressure 124/86, pulse was 110 and regular. She was afebrile. Oxygen saturation 95% on room air. HEENT: Head is without trauma. Pupils were reactive. Sclerae nonicteric. There is a noticeable left-sided facial droop. Oropharynx is clear. NECK: Supple, no bruits, no stridor. LUNGS: Otherwise clear. Minimal rhonchi noted at the bases. CARDIOVASCULAR: Showed regular heart tones. No gallops. ABDOMEN: Soft. No guarding or rebound tenderness. EXTREMITIES: Show no edema. NEUROLOGIC: The patient's speech is slightly slowed, although she is able to articulate well. She has definite flaccid paralysis and weakness of the left arm. She is nonambulatory and favors her right leg. The left leg is also weak. She can barely lift it up against gravity. PERTINENT LABORATORY AND X-RAY STUDIES: Admission hemoglobin was 14.0 g/dL with a white count of 9500. Her chemistry panel unremarkable. Nonfasting blood sugar was 124. Her creatinine was 0.9. Transaminases normal. Troponin remains slightly elevated again at 0.058. ASSESSMENT: 1. This 55-year-old female has an acute stroke involving the right temporal and frontal lobes, resulting in left-sided hemiparesis and mild expressive aphasia. 2. Chronic obstructive pulmonary disease with continued tobacco addiction. 3. Stress demand ischemia, elevation of cardiac enzymes. 4. Recent admission with syncopal episode. 5. Recent COVID exposure. PLAN: 1. Admit to the inpatient unit. 2. I have elected to start her on Plavix 75 mg daily. 3. Physical therapy, occupational therapy and speech consultation in the morning. 4. Formal neurologic consultation in the morning. Prognosis is guarded. 5. Nicotine patch. BOZENA/JESSICA/HERBERT DR: BOZENA/murray TID: [id number]
[2021-02-15 11:06] VITALS: BP 114/79
--- NOTE | 2021-02-15 12:06 | RAD ---
EXAM: Bilateral carotid duplex with waveform analysis. CLINICAL HISTORY: Reason: CVA, LEFT SIDE WEAKNESS / Spl. Instructions: TO BE DONE 02/15/2021 PER TAN SALDAÑA RN / History: . TECHNIQUE: Longitudinal and transverse sonographic images of the bilateral carotid arteries was perfo rmed utilizing grayscale, color and spectral Doppler techniques. COMPARISON: 02/14/2021 FINDINGS: Right Carotid: Atheromatous plaque at the proximal ICA with mild luminal narrowing of the right ICA. Left Carotid: Atheromatous plaque without significant narrowing of the navarrete scale imaging. Vertebrals: Antegrade flow bilaterally. Right: PSV CCA (cm/s): 59 PSV ICA (cm/s): 67 EDV ICA (cm/s): 32 PSV ECA (cm/s): 72 ICA/CCA Ratio: 1.1 Left: PSV CCA (cm/s): 60 PSV ICA (cm/s): 69 EDV ICA (cm/s): 29 PSV ECA (cm/s): 92 ICA/CCA Ratio: 1 IMPRESSION: Less than 50 percent stenosis of the ICA bilaterally. Consensus Panel Navarrete-scale and Doppler US Criteria for Diagnosis of ICA Stenosis Degree of Stenosis (%) ICA PSV (Cm/sec) Plaque Estimate (%)* Normal <125 None <50 <125 <50 50-69 125-230 >50 >70 but < near occlusion >230 >50 Near occlusion High, low, or undetectable Visible Total occlusion Undetectable Visible, no detectable lumen *Plaque estimate (diameter reduction) with navarrete-scale and color Doppler US Degree of Stenosis (%) ICA/CCA PSV Ratio ICA EDV (cm/sec) Normal <2.0 <40 <50 <2.0 <40 50-69 2.0-4.0 40-100 >70 but < near occlusion >4.0 >100 Near occlusion Variable Variable Total occlusion Not applicable Not applicable Electronically signed by: Ariel Garcia MD (02/15/2021 12:04 PM) MEAGAN
--- NOTE | 2021-02-15 13:14 | PDOC2 ---
CONSULT DOS: DATE: 02/15/21 TIME: 13:07 Reason for Consult: Elevated troponin level Referring Physician: Dr. Jansen Chief Complaint Left-sided weakness Source: Chart review, Patient Problem List Problems Medical Problems: (1) Acute CVA (cerebrovascular accident) Status: Acute (2) Weakness of left side of body Status: Acute History of Present Illness 55-year-old female who was recently worked up at [facility] for syncope 3 weeks ago presented complaining of left-sided facial droop and left arm and leg weakness since 3 days. She was diagnosed with right MCA stroke and admitted for further management including neurology team consultation. Her troponin level was slightly elevated prompting cardiology consultation. Review of her medical record showed that she had similar troponin elevation during recent admission for syncope. She denied any chest pain as such. She also denied any orthopnea/PND or palpitations. Past Medical History Recent admission for syncope COPD Family History Negative for premature coronary artery disease Social History Patient smokes 2 pack of cigarettes daily and denied any drug abuse. Current Medications Current Medications Sodium Chloride 1,000 ml @ 1,000 mls/hr 1X ONCE IV Last administered on 02/14/21at 12:31; Start 02/14/21 at 11:30; Stop 02/14/21 at 12:29; Status DC Clopidogrel Bisulfate (Plavix) 75 mg 1X ONCE PO ; Start 02/14/21 at 13:00; Stop 02/14/21 at 13:01; Status DC Clopidogrel Bisulfate (Plavix) 75 mg DAILY ONCE PO Last administered on 02/15/21at 08:06; Start 02/15/21 at 09:00; Stop 02/15/21 at 09:01; Status DC Clopidogrel Bisulfate (Plavix) 75 mg 1X ONCE PO Last administered on 02/14/21at 17:12; Start 02/14/21 at 16:45; Stop 02/14/21 at 16:53; Status DC Nicotine (Nicoderm Cq 21mg Patch) 1 patch DAILY TD Last administered on at 09:15; Start 02/15/21 at 09:00 Clopidogrel Bisulfate (Plavix) 75 mg DAILYWBKFT PO ; Start 02/16/21 at 08:00 Active Scripts Active No Active Prescriptions or Reported Medications Allergies: Coded Allergies: Penicillins (Verified Allergy, Unknown, 01/27/21) aspirin (Verified Allergy, Unknown, 01/27/21) codeine (Verified Allergy, Unknown, 01/27/21) potassium (Verified Allergy, Unknown, 01/27/21) HIVES PSYCHOLOGICAL ROS: No: Hallucinations Eyes: No: Loss of vision HEENT: No: Epistaxis Cardiovascular: No: Chest Pain, Palpitations Gastrointestinal: No: Vomiting Genitourinary: No: [place] Neurological: YES: Other (Left arm and leg weakness, left-sided facial droop); No: Seizures Skin: No: Rash General: Alert, No acute distress HEENT: PERRLA Heart: Regular rate Neuro: Normal speech Psych/Mental Status: Mental status NL VITALS Vital Signs Date Time Temp Pulse Resp B/P (MAP) Pulse Ox O2 Delivery O2 Flow Rate FiO2 02/15/21 11:06 97.7 102 20 114/79 (91) 97 Room Air Labs Laboratory Tests Test 02/14/21 11:33 02/14/21 11:37 02/14/21 13:17 02/15/21 06:22 Glucose (Fingerstick) 142 mg/dL (70-99) White Blood Count 9.5 x10^3/uL (4.0-11.0) Red Blood Count 4.79 x10^6/uL (3.50-5.40) Hemoglobin 14.0 g/dL (12.0-15.5) Hematocrit 42.0 % (36.0-47.0) Mean Corpuscular Volume 88 fL (79-100) Mean Corpuscular Hemoglobin 29 pg (25-35) Mean Corpuscular Hemoglobin Concent 33 g/dL (31-37) Red Cell Distribution Width 13.9 % (11.5-14.5) Platelet Count 254 x10^3/uL (140-400) Neutrophils (%) (Auto) 67 % (31-73) Lymphocytes (%) (Auto) 22 % (24-48) Monocytes (%) (Auto) 9 % (0-9) Eosinophils (%) (Auto) 1 % (0-3) Basophils (%) (Auto) 1 % (0-3) Neutrophils # (Auto) 6.4 x10^3uL (1.8-7.7) Lymphocytes # (Auto) 2.0 x10^3/uL (1.0-4.8) Monocytes # (Auto) 0.8 x10^3/uL (0.0-1.1) Eosinophils # (Auto) 0.1 x10^3/uL (0.0-0.7) Basophils # (Auto) 0.1 x10^3/uL (0.0-0.2) Prothrombin Time 9.9 SEC (9.4-11.4) Prothromb Time International Ratio 1.0 (0.9-1.1) Activated Partial Thromboplast Time 23 SEC (23-33) Sodium Level 139 mmol/L (136-145) Potassium Level 3.5 mmol/L (3.5-5.1) Chloride Level 104 mmol/L (98-107) Carbon Dioxide Level 27 mmol/L (21-32) Anion Gap 8 (6-14) Blood Urea Nitrogen 13 mg/dL (7-20) Creatinine 0.6 mg/dL (0.6-1.0) Estimated GFR (Cockcroft-Gault) 103.4 BUN/Creatinine Ratio 22 (6-20) Glucose Level 124 mg/dL (70-99) Calcium Level 8.3 mg/dL (8.5-10.1) Total Bilirubin 1.1 mg/dL (0.2-1.0) Aspartate Amino Transf (AST/SGOT) 18 U/L (15-37) Alanine Aminotransferase (ALT/SGPT) 25 U/L (14-59) Alkaline Phosphatase 94 U/L (46-116) Troponin I Quantitative 0.058 ng/mL (0-0.055) Total Protein 6.6 g/dL (6.4-8.2) Albumin 3.1 g/dL (3.4-5.0) Albumin/Globulin Ratio 0.9 (1.0-1.7) Urine Collection Type Unknown Urine Color Yellow Urine Clarity Clear Urine pH 6.0 Urine Specific [place] 1.010 Urine Protein Neg (NEG-TRACE) Urine Glucose (UA) Neg mg/dL (NEG) Urine Ketones (Stick) Neg mg/dL (NEG) Urine Blood Neg (NEG) Urine Nitrite Pos (NEG) Urine Bilirubin Neg (NEG) Urine Urobilinogen Dipstick 0.2 mg/dL (0.2 mg/dL) Urine Leukocyte Esterase Neg (NEG) Urine RBC 1-2 /HPF (0-2) Urine WBC 1-4 /HPF (0-4) Urine Squamous Epithelial Cells Mod /LPF Urine Bacteria Many /HPF (0-FEW) Urine Test Negative (NEG) Triglycerides Level 91 mg/dL (0-150) Cholesterol Level 164 mg/dL (0-200) LDL Cholesterol, Calculated 104 mg/dL (0-100) VLDL Cholesterol, Calculated 18 mg/dL (0-40) Non-HDL Cholesterol Calculated 122 mg/dL (0-129) HDL Cholesterol 42 mg/dL (40-60) Cholesterol/HDL Ratio 3.0 Assessment/Plan 1. Acute right MCA CVA, not a candidate for TPA due to late presentation. Neurology following. Plan for 2D echo and carotid arterial duplex scan. If work-up is negative, we will consider outpatient loop recorder implantation to rule out atrial fibrillation as a cause of her stroke. 2. Slightly elevated troponin level, most probably demand ischemia. Plan for 2D echo to rule out wall motion abnormalities. Ischemic evaluation could be considered as an outpatient. 3. Tobacco abuse: Advised on smoking cessation Thank you for your consultation VERNA FONTENOT MD Feb 15, 2021 13:14
[2021-02-15 14:40] VITALS: BP 119/82
--- NOTE | 2021-02-15 17:58 | NUR ---
Nursing Note Pt was able to get up and use bedside commode with standby assistance today. Pt states her speech is improving, along with her LLE. She is now able to raise her LUE. Pt was calm and cooperative today. Pt saw PT today and sat in the chair today. Pt received a nicotine patch.
[2021-02-15 18:49] VITALS: BP 117/80
[2021-02-15 23:00] VITALS: BP 127/84
[2021-02-16 05:48] VITALS: BP 125/89
--- NOTE | 2021-02-16 06:33 | NUR ---
Patient is calm and cooperative. She was able to get up to the bedside commode with SBA. She is able to bear weight on her Left leg, although she appears to have some difficulty moving it forward while walking. She reports she cannot raise her left arm. Patients telemetry showed tachycardia most of the shift 110-125. Patients admission urine went to culture, it is still pending.
[2021-02-16] MEDS ORDERED: CLOPIDOGREL BISULFATE 75 MG TABLET PO SCH (08:00)
--- NOTE | 2021-02-16 08:36 | PDOC ---
KAMILA MELVIN CLOTH TESTER QUALITY 02/16/21 0836: CARDIO Progress Notes Date & Time Date of Service DATE: 02/16/21 TIME: 08:27 Time of Evaluation 08:27 Subjective Notes left sided weakness improving. No chest pain, palpitations. Vitals Vitals Vital Signs Date Time Temp Pulse Resp B/P (MAP) Pulse Ox O2 Delivery O2 Flow Rate FiO2 02/16/21 05:48 98.1 125 19 125/89 (101) 96 Room Air Weight Weight [ ] Input and Output I.O. Intake and Output 02/16/21 07:00 Intake Total 1460 ml Balance 1460 ml Intake Oral 1460 ml # Voids 10 Laboratory Labs Laboratory Tests Test 02/14/21 11:33 02/14/21 11:37 02/14/21 13:17 02/15/21 06:22 Glucose (Fingerstick) 142 mg/dL (70-99) White Blood Count 9.5 x10^3/uL (4.0-11.0) Red Blood Count 4.79 x10^6/uL (3.50-5.40) Hemoglobin 14.0 g/dL (12.0-15.5) Hematocrit 42.0 % (36.0-47.0) Mean Corpuscular Volume 88 fL (79-100) Mean Corpuscular Hemoglobin 29 pg (25-35) Mean Corpuscular Hemoglobin Concent 33 g/dL (31-37) Red Cell Distribution Width 13.9 % (11.5-14.5) Platelet Count 254 x10^3/uL (140-400) Neutrophils (%) (Auto) 67 % (31-73) Lymphocytes (%) (Auto) 22 % (24-48) Monocytes (%) (Auto) 9 % (0-9) Eosinophils (%) (Auto) 1 % (0-3) Basophils (%) (Auto) 1 % (0-3) Neutrophils # (Auto) 6.4 x10^3uL (1.8-7.7) Lymphocytes # (Auto) 2.0 x10^3/uL (1.0-4.8) Monocytes # (Auto) 0.8 x10^3/uL (0.0-1.1) Eosinophils # (Auto) 0.1 x10^3/uL (0.0-0.7) Basophils # (Auto) 0.1 x10^3/uL (0.0-0.2) Prothrombin Time 9.9 SEC (9.4-11.4) Prothromb Time International Ratio 1.0 (0.9-1.1) Activated Partial Thromboplast Time 23 SEC (23-33) Sodium Level 139 mmol/L (136-145) Potassium Level 3.5 mmol/L (3.5-5.1) Chloride Level 104 mmol/L (98-107) Carbon Dioxide Level 27 mmol/L (21-32) Anion Gap 8 (6-14) Blood Urea Nitrogen 13 mg/dL (7-20) Creatinine 0.6 mg/dL (0.6-1.0) Estimated GFR (Cockcroft-Gault) 103.4 BUN/Creatinine Ratio 22 (6-20) Glucose Level 124 mg/dL (70-99) Calcium Level 8.3 mg/dL (8.5-10.1) Total Bilirubin 1.1 mg/dL (0.2-1.0) Aspartate Amino Transf (AST/SGOT) 18 U/L (15-37) Alanine Aminotransferase (ALT/SGPT) 25 U/L (14-59) Alkaline Phosphatase 94 U/L (46-116) Troponin I Quantitative 0.058 ng/mL (0-0.055) Total Protein 6.6 g/dL (6.4-8.2) Albumin 3.1 g/dL (3.4-5.0) Albumin/Globulin Ratio 0.9 (1.0-1.7) Urine Collection Type Unknown Urine Color Yellow Urine Clarity Clear Urine pH 6.0 Urine Specific [place] 1.010 Urine Protein Neg (NEG-TRACE) Urine Glucose (UA) Neg mg/dL (NEG) Urine Ketones (Stick) Neg mg/dL (NEG) Urine Blood Neg (NEG) Urine Nitrite Pos (NEG) Urine Bilirubin Neg (NEG) Urine Urobilinogen Dipstick 0.2 mg/dL (0.2 mg/dL) Urine Leukocyte Esterase Neg (NEG) Urine RBC 1-2 /HPF (0-2) Urine WBC 1-4 /HPF (0-4) Urine Squamous Epithelial Cells Mod /LPF Urine Bacteria Many /HPF (0-FEW) Urine Test Negative (NEG) Triglycerides Level 91 mg/dL (0-150) Cholesterol Level 164 mg/dL (0-200) LDL Cholesterol, Calculated 104 mg/dL (0-100) VLDL Cholesterol, Calculated 18 mg/dL (0-40) Non-HDL Cholesterol Calculated 122 mg/dL (0-129) HDL Cholesterol 42 mg/dL (40-60) Cholesterol/HDL Ratio 3.0 Microbiology Micro Microbiology 02/14/21 Urine Culture - Final, Complete Physical Exams HEENT: Neck Supple W Full Motion Chest: Symmetric Lungs: Clear to Auscultation Heart: RRR (SR/ST) Abdomen: Soft N/T Extremities: No Edema, Other (left sided weakness ) Neurology: alert, oriented, follow commands Assessment Assessment 1. Acute right MCA CVA, not a candidate for TPA due to late presentation. as per Neurology 2. Slightly elevated troponin level, most probably demand ischemia. CP free. 3. Tobacco abuse; smoking cessation reinforced Recommendations Secondary prevention; on Plavix. add statin Add metoprolol for rate control Echo to assess LV systolic function, rule out WMA Consider outpatient loop recorder implantation to rule out atrial fibrillation as a cause of her stroke. Ischemic evaluation could be considered as an outpatient. Rehab modalities Follow up in our office with VERNA Delarosa MD 02/16/21 [id number]: CARDIO Progress Notes Assessment Assessment Patient seen and examined. Agree with TICKET SCHEDULER's assessment and plan. Clinically did not show any significant arrhythmias so far. Slight troponin elevation probably demand ischemia. Plan 2D echo to assess LV systolic function, Lexiscan nuclear stress test to rule out ischemia and loop recorder implantation to rule out atrial fibrillation as a cause of her CVA as an outpatient. Okay for DC from cardiac standpoint and follow-up as scheduled. KAMILA MELVIN APRN Feb 16, 2021 08:36 VERNA FONTENOT MD Feb 16, 2021 16:58
[2021-02-16] MEDS ORDERED: METOPROLOL TART IMMED RELEASE 25 MG TABLET. PO SCH (09:00)
[2021-02-16 10:03] VITALS: BP 125/89
[2021-02-16] MEDS: NICOTINE 21MG PATCH. TD SCH (10:03)
--- NOTE | 2021-02-16 12:27 | NUR ---
Pt discharged at 1155 via wheel chair accompanied by staff. pt given written and verbal instructions with verbal statement of understanding achieved.
--- NOTE | 2021-02-16 19:45 | DS ---
DATE OF DISCHARGE: 02/16/2021 ATTENDING PHYSICIAN: Dr. Jansen. FINAL DISCHARGE DIAGNOSES: 1. Acute embolic stroke right-sided with left-sided hemiparesis and mild expressive aphasia. 2. Chronic obstructive pulmonary disease and continued tobacco addiction. 3. Stress demand ischemia and elevation of cardiac enzymes. 4. Recent syncopal episode. 5. Recent COVID exposure. HISTORY AND PHYSICAL: The patient is a 55-year-old female well known to us from previous admission. She has stroke symptoms. CT of the head in the ED demonstrated completed the stroke. Duration was greater than 3 days. She had significant left-sided hemiparesis as well as some speech disorder. She was admitted and started on therapy. PHYSICAL EXAMINATION: Please see the dictated note. PERTINENT LABORATORY AND X-RAY STUDIES: Admission hemoglobin was 14.0 g/dL, white count 9500. Electrolytes within normal range. Troponin was slightly elevated at 0.058. Her cholesterol level was 164. Nonfasting blood sugar 142. IMAGING STUDIES: Carotid Dopplers showed mild luminal narrowing of the right ICA. There is less than 50% stenosis of the ICA bilaterally. It was not hemodynamically significant. CT of the head showed evidence of acute ischemic stroke involving the right frontal lobe extending partly into the right temporal lobe. COURSE IN THE HOSPITAL: The patient was admitted. She was started on Plavix. In addition Physical Therapy and Occupational Therapy was asked to see her. Their evaluations are on the chart. Her strength improved and Neurology services recommended smoking cessation as well as continuing her Plavix and the addition of a statin drug. Cardiology consultation is on the chart. On the 3rd hospital day, she was doing better. Strength is getting back. I got her a handicap sticker form, in additional I wrote her scripts for Plavix 75 mg p.o. daily and Lipitor 20 mg p.o. daily. Strong encouragement to avoid nicotine use whether or not she will quit smoking remains to be seen. She was discharged then from our hospital in stable condition with explicit written and followup care. We also initiated Medicaid application process. TOTAL DISCHARGE TIME SPENT: 42 minutes. BRENDON/HO DR: Kashmir TID: [id number]
[2021-02-16] MEDS ORDERED: ATORVASTATIN CALCIUM 10 MG TABLET. PO SCH (21:00)
[2021-02-16] MEDS ORDERED: ATORVASTATIN CALCIUM 20 MG TABLET PO SCH (21:00)
--- NOTE | 2021-02-16 21:44 | PN ---
SUBJECTIVE: The patient continued to have left upper extremity weakness, but much better than they were on admission. She is more stronger. She denies headaches, visual disturbances, nausea, vomiting, chest pain, shortness of breath or palpitation, dysarthria or dysphagia. Laboratory file revealed a moderately elevated LDL and normal HDL. OBJECTIVE: GENERAL: Well-developed, well-nourished female in no acute distress. VITAL SIGNS: Blood pressure 125/89, respiratory rate 19, pulse is 125, oxygen saturation is 96%, and temperature is 98.1. HEENT: Normocephalic, atraumatic, otherwise unremarkable. NECK: Supple, negative for carotid bruit, lymphadenopathy or thyromegaly. LUNGS: Clear to A and P. CARDIOVASCULAR: Regular rate and rhythm, normal S1, S2. ABDOMEN: Soft. Bowel sounds positive. EXTREMITIES: Negative for cyanosis, clubbing or pedal edema. NEUROLOGIC: Normal mental status and intact cranial nerves. Motor examination revealed left upper extremity paresis where the strength is 4/5 better than on the day of admission. Sensory examination revealed diminished pinprick and light touch senses over the left upper and lower extremities in patchy distributions. Deep tendon reflexes were symmetric and hypoactive with positive Babinski on the left side. Gait not tested at this time. DIAGNOSTICS: A carotid Doppler study revealed no evidence of significant stenosis. IMPRESSION: 1. Status post acute stroke resulting in left hemiparesis, more prominent on the left upper extremity with left hemisensory deficits. Etiology is uncertain. Cardiology workup includes Holter monitoring and echocardiogram are pending. 2. Smoking. RECOMMENDATIONS: Continue with current management initiated by Dr. Jansen with physical therapy and smoking cessation. CURTIS DR: Joyce TID: [id number]
== END 2021-02-16 12:25 | disposition home or self-care (01) | DRG 65 ==
LOC: ER 11:21 → 1 SOUTH 13:01
PROVIDERS: ADMIT Hospitalist; ATTEND Hospitalist
DX: I63.411 Cerebral infarction due to embolism of right middle cerebral artery (principal); G81.94 Hemiplegia, unspecified affecting left nondominant side; I24.8 Other forms of acute ischemic heart disease; E11.9 Type 2 diabetes mellitus without complications; R47.01 Aphasia; E78.5 Hyperlipidemia, unspecified; F17.210 Nicotine dependence, cigarettes, uncomplicated; I10 Essential (primary) hypertension; J44.9 Chronic obstructive pulmonary disease, unspecified; R29.705 NIHSS score 5; R29.810 Facial weakness; W19.XXXA Unspecified fall, initial encounter; W22.09XA Striking against other stationary object, initial encounter; Z79.02 Long term (current) use of antithrombotics/antiplatelets; Z80.3 Family history of malignant neoplasm of breast; Z80.49 Family history of malignant neoplasm of other genital organs; Z80.8 Family history of malignant neoplasm of other organs or systems; Z82.49 Family history of ischemic heart disease and other diseases of the circulatory system; Z86.16 Personal history of COVID-19; Z86.73 Personal history of transient ischemic attack (TIA), and cerebral infarction without residual deficits; Z90.710 Acquired absence of both cervix and uterus
CPT/HCPCS: 36415; 70450; 80053; 80061; 81001; 81025; 82947; 84484; 85025; 85610; 85730; 87086; 93005; 93880; 96360; 97163; 99406; 97530; 99285-25; J7030

== ENCOUNTER 2021-08-18 18:29 | Emergency (ER) | payer OTHER ==
[~2021-08-18] VITALS: Ht 172.7 cm; Wt 80.0 kg
--- NOTE | 2021-08-18 18:41 | PHYS DOC ---
Past History Past Medical History: COPD Past Surgical History: Cancer Surgery Smoking: Cigarettes, Greater than 1 pack/day Alcohol Use: None Drug Use: None General Adult EDM: Chief Complaint: SHORTNESS OF BREATH HPI: HPI: ".. I ve been sick the last 4 days... fever, cough.. I have asthma... I am so short of breath... I almost quit smoking... "... " I ve tested 4 x for COVID the past two weeks.. they all been negative.... " Patient is a 56 year old female who presents with above hx of cough, fever, chills, dyspnea, malaise, arthralgia, myalgia, and wheezing. Patient has been known to have frequent visits to the emergency department. She has followed with cardiology on previous hospitalizations here at [facility]. Does have significant past history of CVA with resulting in left-sided facial droop left arm and leg weakness. This is been somewhat of a chronic issue since last CVA right frontal. She does have a history of migraines, COPD, syncopes, tobacco use approximately 80 pack years, anxiety, coronary artery disease, depression, elevated cholesterol and anxiety. Patient does have a history of noncompliance.. Pt. follows with Rekha at [facility]. Patient has not had flu vaccination. Patient has not had COVID vaccinations. Reportedly patient had COVID earlier in January the year of 2020 Review of Systems: Review of Systems: Constitutional: Complains of fever or chills Eyes: Denies change in visual acuity HENT: Complains of nasal congestion or sore throat Respiratory: Complains of cough, wheezing, shortness of breath Cardiovascular: Complains of chest discomfort. GI: Denies abdominal pain, nausea, vomiting, bloody stools or diarrhea : Denies dysuria Musculoskeletal: Denies back pain or joint pain Integument: Denies rash Neurologic: Denies headache, focal weakness or sensory changes Endocrine: Denies polyuria or polydipsia Lymphatic: Denies swollen glands Psychiatric: Complains of depression and anxiety Family History: Family History: Mom is age 78. Father is unknown. ,. There is family history of breast cancer and cervical cancer. Allergies: Allergies: Allergies Coded Allergies Type Severity Reaction Last Updated Verified Penicillins Allergy Unknown 01/27/21 Yes aspirin Allergy Unknown 01/27/21 Yes codeine Allergy Unknown 01/27/21 Yes potassium Allergy Unknown 01/27/21 Yes Physical Exam: PE: Constitutional: Moderate acute distress, non-toxic appearance. [] HENT: Normocephalic, atraumatic, bilateral external ears normal, oropharynx moist, no oral exudates, nose swollen turbinates and rhinorrhea. Postnasal drainage and erythema Eyes: PERRLA, EOMI, conjunctiva normal, no discharge. [] Neck: Normal range of motion, no tenderness, supple, no stridor. Does have some JVD in sitting position. Cardiovascular : Tachycardia heart rate regular rhythm, no murmur [] bedside monitor shows a sinus tachycardia Lungs & Thorax: Bilateral breath sounds are apex with scattered wheezes throughout. Does have diffuse crackles right lung base. Auscultation [] Abdomen: Bowel sounds normal, soft, no tenderness, no masses, no pulsatile masses. [] Skin: Warm, diaphoretic, no erythema, no rash. Tattoos. Back: No tenderness, no CVA tenderness. [] Extremities: No tenderness, no cyanosis, no clubbing, ROM intact, no edema. No cording appreciated Neurologic: Alert and oriented X 3, normal motor function, normal sensory function, no focal deficits noted. [] Psychologic: Affect anxious, judgement normal, mood depressed affect EKG: EKG: My interpretation EKG shows a sinus tachycardia 131 bpm. Some bimodal T waves in the left leads. No findings of acute STEMI or contralateral changes but would consider this an abnormal EKG. Time of EKG is 1858 [] My interpretation second EKG shows a sinus tachycardia 124 bpm. Left atrial bimodal waves. No significant interval change. Abnormal EKG. Time of EKG is 2202 hrs. 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 PHYSICIAN: YAIMA COLEMAN MD REASON: dyspnea, tachy PROCEDURE: PORTABLE CHEST 1V Exam: Chest one view INDICATION: Dyspnea, tachycardia TECHNIQUE: Frontal view of the chest Comparisons: None FINDINGS: The cardiomediastinal silhouette and pulmonary vessels are within normal limits. Patchy airspace disease at the right mid and lower lung. No pleural effusion IMPRESSION: Patchy right-sided airspace disease may be infectious or inflammatory in etiology. Electronically signed by: Elicia Sue MD (08/18/2021 7:26 PM) [facility] DICTATED AND SIGNED BY: ELICIA SUE MD DATE: 08/18/211924 CC: YAIMA COLEMAN MD; PCP,NO ~MTH0 0 Heart Score: C/O Chest Pain: Yes HEART Score for Chest Pain: HEART Score for Chest Pain Response (Comments) Value History Moderately Suspicious 1 ECG Nonspecific Repolarizatio 1 Age >45 - < 65 1 Risk Factors 1 or 2 Risk Factors 1 Troponin >1-<3x Normal Limit 1 Total 5 Risk Factors: Risk Factors: DM, Current or recent (<one month) smoker, HTN, HLP, family histo ry of CAD, obesity. Risk Scores: Score 0 - 3: 2.5% MACE over next 6 weeks - Discharge Home Score 4 - 6: 20.3% MACE over next 6 weeks - Admit for Clinical Observation Score 7 - 10: 72.7% MACE over next 6 weeks - Early Invasive Strategies Course & Med Decision Making: Course & Med Decision Making Pertinent Labs and Imaging studies reviewed. (See chart for details) Begged patient cannot leave AMA. Patient exhibits UCAR [place]. Encourage patient not to smoke. Patient use MDI 2 puffs 4 times a day. Patient take 40 Lasix fruit juice or high potassium food every morning. Keep follow-up with primary care. Encourage patient to avoid use any illicit drugs such as methamphetamine. Patient take your Eliquis as previously directed. Must follow-up. Patient insistent on being discharged. Impression: 1. Respiratory failure-hypoxia 2. CHF-BNP 6177 3. Elevated Trop. 111 - second 107 4. Elevated D-dimer 3.91 5. Leukocytosis 12.6 6. Malnutrition albumin 2.7 7. UDS + Methamphetamine 8. Hypomagnesium 1.6 9. Hx. Asthma/ Bronchitis 10. Tobacco Use. [] Dragjaneth Disclaimer: Mohan Disclaimer: This electronic medical record was generated, in whole or in part, using a voice recognition dictation system. Departure Departure: Referrals: PCP,NO (PCP) Scripts Furosemide (LASIX) 40 Mg Tablet 40 MG PO DAILY for chf, #30 TAB Prov: YAIMA COLEMAN MD 08/18/21 Cephalexin (KEFLEX) 500 Mg Capsule 500 MG PO TID for uti for 7 Days, #21 CAP Prov: YAIMA COLEMAN MD 08/18/21 Dragon Disclaimer This chart was dictated in whole or in part using Voice Recognition software in a busy, high-work load, and often noisy Emergency Department environment. It may contain unintended and wholly unrecognized errors or omissions. YAIMA COLEMAN MD Aug 18, 2021 18:41
[2021-08-18] MEDS: methylPREDNISolone SOD SUCC PF 125 MG/2 ML VIAL. IV ONE (19:17)
[2021-08-18] MEDS: IV RINGERS SOLUTION,LACTATED 1,000 ML IV SCH (19:17)
--- NOTE | 2021-08-18 19:28 | RAD ---
Exam: Chest one view INDICATION: Dyspnea, tachycardia TECHNIQUE: Frontal view of the chest Comparisons: None FINDINGS: The cardiomediastinal silhouette and pulmonary vessels are within normal limits. Patchy airspace disease at the right mid and lower lung. No pleural effusion IMPRESSION: Patchy right-sided airspace disease may be infectious or inflammatory in etiology. Electronically signed by: Elicia Locke MD (08/18/2021 7:26 PM) [facility]
[2021-08-18] MEDS: ALBUTEROL SULFATE 8GM INHALER. INH ONE (19:33)
--- NOTE | 2021-08-18 20:02 | EKG ---
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
[2021-08-18 20:29] LABS: BASO % 0 % (0-3); EOS % 0 % (0-3); HEMATOCRIT 38.3 % (36.0-47.0); HEMOGLOBIN 12.5 g/dL (12.0-15.5); LYMPH % 8 % (24-48); MEAN CORPUSCULAR HEMOGLOBIN 29 pg (25-35); MEAN CORPUSCULAR HGB CONC 33 g/dL (31-37); MEAN CORPUSCULAR VOLUME 89 fL (79-100); MONO # 1.1 x10^3/uL (0.0-1.1); MONO % 9 % (0-9); NEUT # 10.5 x10^3uL (1.8-7.7); NEUT % 83 % (31-73); PLATELET COUNT 240 x10^3/uL (140-400); RED BLOOD COUNT 4.32 x10^6/uL (3.50-5.40); RED CELL DISTRIBUTION WIDTH 14.1 % (11.5-14.5); WHITE BLOOD COUNT 12.6 x10^3/uL (4.0-11.0)
[2021-08-18 20:34] LABS: ALBUMIN 2.7 g/dL (3.4-5.0); CALCIUM 8.3 mg/dL (8.5-10.1); CREATININE 0.6 mg/dL (0.6-1.0); DIRECT BILIRUBIN 0.6 mg/dL (0.0-0.2); MAGNESIUM 1.6 mg/dL (1.8-2.4); POTASSIUM 4.2 mmol/L (3.5-5.1); TOTAL BILIRUBIN 1.7 mg/dL (0.2-1.0); TOTAL PROTEIN 6.3 g/dL (6.4-8.2)
[2021-08-18 20:42] LABS: BARBITURATES NEG (NEG); BENZODIAZEPINES NEG (NEG); CANNABINOIDS NEG (NEG); COCAINE NEG (NEG); METHADONE NEG (NEG); OPIATES NEG (NEG); PHENCYCLIDINE NEG (NEG)
[2021-08-18 20:43] LABS: AMPHETAMINE/METHAMPHETAMINE POS (NEG)
[2021-08-18 20:44] LABS: INFLUENZA A PATIENT NEGATIVE (NEGATIVE); INFLUENZA B PATIENT NEGATIVE (NEGATIVE)
[2021-08-18 20:50] LABS: CLARITY,URINE CLOUDY; COLOR,URINE YELLOW
[2021-08-18 20:51] LABS: BACTERIA,URINE MANY /HPF (0-FEW); BILIRUBIN,URINE SMALL (NEG); GLUCOSE,URINE NEG (NEG); NITRITE,URINE POS (NEG); SQUAMOUS EPITHELIAL CELL,UR MOD /LPF; WBC,URINE >40 /HPF (0-4)
[2021-08-18 20:53] LABS: BGAS PH 7.47 (7.35-7.45)
[2021-08-18] MEDS ORDERED: cefTRIAXone SODIUM 1 GM VIAL ONE (21:45)
[2021-08-18] MEDS ORDERED: IV NORMAL SALINE 50ML 50 ML ONE (21:45)
[2021-08-18] MEDS: FUROSEMIDE 40 MG/4 ML VIAL IVP ONE ×2 (22:01→23:15)
[2021-08-18] MEDS ORDERED: FURO-68 PO (22:50)
[2021-08-18] MEDS ORDERED: CEPH500C PO (22:50)
[2021-08-18] MEDS: APIXABAN 5 MG TABLET. PO ONE (23:16)
[2021-08-18 23:20] VITALS: BP 114/79
--- NOTE | 2021-08-19 04:20 | EKG ---
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
[2021-08-19] MEDS ORDERED: APIXABAN 5 MG TABLET. PO SCH (09:00)
== END 2021-08-18 23:20 | disposition left against medical advice (07) ==
LOC: ER 18:29
DX: J96.91 Respiratory failure, unspecified with hypoxia (principal); I50.9 Heart failure, unspecified; R79.1 Abnormal coagulation profile; R77.8 Other specified abnormalities of plasma proteins; D72.829 Elevated white blood cell count, unspecified; E83.42 Hypomagnesemia; F17.210 Nicotine dependence, cigarettes, uncomplicated; J44.9 Chronic obstructive pulmonary disease, unspecified; F15.10 Other stimulant abuse, uncomplicated; E46 Unspecified protein-calorie malnutrition; Z20.822 Contact with and (suspected) exposure to COVID-19; Z68.26 Body mass index [BMI] 26.0-26.9, adult; Z88.0 Allergy status to penicillin; Z88.5 Allergy status to narcotic agent; Z88.6 Allergy status to analgesic agent; Z88.8 Allergy status to other drugs, medicaments and biological substances
CPT/HCPCS: 36415; 71045; 80048; 80076; 80307; 81001; 82550; 82803; 83605; 83690; 83735; 83880; 84443; 84484; 85025; 85379; 85610; 85730; 87040; 87070; 87086; 87428; 87880; 93005; 94640; 96361; 96365; 96375; 96376; 99285; C9803; J0696; J1940; J2930; J7120; U0003; 87077; 94664

== ENCOUNTER 2021-08-26 13:05 | Emergency (ER) | payer OTHER ==
[~2021-08-26] VITALS: Ht 172.7 cm; Wt 80.0 kg
[~2021-08-26 13:05] MED LIST: CEPH500C PO; FURO-68 PO
[2021-08-26] MEDS ORDERED: IOHEXOL 350 MG/ML 100 ML VIAL. ONE (13:16)
--- NOTE | 2021-08-26 13:20 | EKG ---
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
[2021-08-26] MEDS ORDERED: CONTRAST GIVEN. MC PRN (13:30)
[2021-08-26] MEDS ORDERED: IOHEXOL 350 MG/ML 100 ML VIAL. IV ONE (13:30)
--- NOTE | 2021-08-26 13:34 | RAD ---
EXAM: Head CT without contrast. HISTORY: Code stroke. Altered mental status. TECHNIQUE: Computed tomographic images of the head were obtained without contrast. *One or more of the following individualized dose reduction techniques were utilized for this examina tion: 1. Automated exposure control. 2. Adjustment of the mA and/or kV according to patient size. 3. Use of iterative reconstruction technique. COMPARISON: 02/14/2021. FINDINGS: There is no acute hemorrhage. There is encephalomalacia within the right middle cerebral ar ramírez distribution due to chronic infarction. There are few small areas of hypodensity within the cere bral white matter due to additional small infarcts or changes due to chronic small vessel disease. Th ere is mild cerebral volume loss which is greater than expected for patient age. There is no suspicio us calvarial lesion. The orbits, paranasal sinuses mastoid air cells are unremarkable. IMPRESSION: 1. No convincing acute intracranial finding. MRI is more sensitive for acute infarction. 2. Chronic infarct within the right MCA distribution. 3. Scattered focal areas of hypodensity within the cerebral white matter, most commonly due to chroni c small vessel disease. The possibility of additional small chronic infarct is not excluded. 4. Cerebral volume loss. Findings were discussed with Dr. Blanco at 1328 hours on 08/26/2021. FOR INTERNAL CODING PURPOSES RESULT CODE: (C) Electronically signed by: Florencia Gill MD (08/26/2021 1:31 PM) [id number]
[2021-08-26 13:35] LABS: BASO # 0.1 x10^3/uL (0.0-0.2); BASO % 1 % (0-3); EOS # 0.1 x10^3/uL (0.0-0.7); EOS % 1 % (0-3); HEMATOCRIT 38.4 % (36.0-47.0); HEMOGLOBIN 12.6 g/dL (12.0-15.5); LYMPH # 1.6 x10^3/uL (1.0-4.8); LYMPH % 17 % (24-48); MEAN CORPUSCULAR HEMOGLOBIN 28 pg (25-35); MEAN CORPUSCULAR HGB CONC 33 g/dL (31-37); MEAN CORPUSCULAR VOLUME 87 fL (79-100); MONO # 0.8 x10^3/uL (0.0-1.1); MONO % 8 % (0-9); NEUT # 6.9 x10^3uL (1.8-7.7); NEUT % 73 % (31-73); PLATELET COUNT 498 x10^3/uL (140-400); RED BLOOD COUNT 4.44 x10^6/uL (3.50-5.40); RED CELL DISTRIBUTION WIDTH 14.6 % (11.5-14.5); WHITE BLOOD COUNT 9.5 x10^3/uL (4.0-11.0)
[2021-08-26 13:42] LABS: CALCIUM 8.6 mg/dL (8.5-10.1); CREATININE 0.7 mg/dL (0.6-1.0); GFR 86.2; POTASSIUM 4.1 mmol/L (3.5-5.1)
[2021-08-26 13:47] LABS: ALBUMIN 2.6 g/dL (3.4-5.0); ALBUMIN/GLOBULIN RATIO 0.6 (1.0-1.7); TOTAL BILIRUBIN 0.9 mg/dL (0.2-1.0); TOTAL PROTEIN 6.7 g/dL (6.4-8.2)
--- NOTE | 2021-08-26 13:58 | RAD ---
EXAM: CT angiography of the head and neck with intravenous contrast. HISTORY: Stroke. TECHNIQUE: Computed tomographic images of the head and neck were obtained following the administratio n of intravenous contrast according to angiography protocol. Multiplanar reformatting was performed a nd three dimensional maximum intensity projection images were obtained. *One or more of the following individualized dose reduction techniques were utilized for this examina tion: 1. Automated exposure control. 2. Adjustment of the mA and/or kV according to patient size. 3. Use of iterative reconstruction technique. COMPARISON: Noncontrast head CT obtained on the same date. FINDINGS: Evaluation of the upper thorax demonstrates a right pleural effusion and posterior right up per lobe infiltrate likely due to pneumonia. This is superimposed on emphysema. There is mild calcifi ed atherosclerotic plaque at the origins of the aortic arch great vessels, with less than 50 percent stenosis. There is a standard aortic arch branching pattern. There is mild dilatation of the proximal right ICA distal to its origin, likely physiologic. No convincing aneurysm, dissection or significan t stenosis is seen involving the carotid bifurcations. The distal right ICA is tortuous at the level of the skull base. The anterior commuting indicating artery and right posterior communicating artery are absent. The left posterior commuting indicating artery appears to be hypoplastic. There is significant decreased flow within the right middle cerebral artery branches within the anter ior sylvian fissure, likely due to low flow or chronic occlusion given evidence of a chronic infarct in this distribution. The vertebral arteries are widely patent. The distal left vertebral artery is s lightly hypoplastic distal to the origin of the posterior inferior cerebellar artery. There is no ane urysm or suspicious enhancing lesion. There is encephalomalacia within the right middle cerebral artery distribution due to chronic infarct ion. There are additional smaller areas of hypodensity within the cerebral white matter due to chroni c small vessel disease or chronic infarcts. There is mild cerebral volume loss. There are degenerativ e changes involving the cervical spine. This results in severe left foraminal stenosis at C2-C3, mild to moderate right and moderate left foraminal stenosis at C3-C4, and severe right and mild left fora annetta stenosis at C3-C6. IMPRESSION: 1. Decreased flow within the right middle cerebral artery branches within the anterior sylvian fissur e, likely due to low flow secondary to a chronic infarct within this distribution. 2. No additional hemodynamically significant stenosis or large vessel occlusion. 3. Chronic infarct within the right middle cerebral artery distribution. There are additional areas o f hypodensity due to chronic small vessel disease or chronic infarction. Note is made that MRI is mor e sensitive for acute infarction. 4. Small right pleural effusion and right lower lobe pneumonia. 5. Degenerative change involving the cervical spine, resulting in stenosis at the 4 mentioned levels. Findings were discussed with Dr. Maza at 1350 hours on 08/26/2021. RS Compliance Statement - Stenosis calculations for CT, MR and conventional angiography are based u rossana measurement of the distal ICA diameter in accordance with the NASCET methodology. Stenosis calcu lations for carotid ultrasound studies are derived from validated velocity criteria which are known t o correlate with the NASCET methodology. Electronically signed by: Florencia Gill MD (08/26/2021 1:56 PM) [id number]
--- NOTE | 2021-08-26 14:22 | PHYS DOC ---
Past History Past Medical History: COPD, CVA, High Cholesterol, Hypertension (ROCHELLE MAZA APRN) Past Surgical History: Cancer Surgery (ROCHELLE MAZA APRN) Smoking: Cigarettes, Greater than 1 pack/day Alcohol Use: None Drug Use: None (ROCHELLE MAZA APRN) General Adult EDM: Chief Complaint: ALTERED MENTAL STATUS HPI: HPI: Patient is a 56-year-old female that presents today with altered mental status. is at the bedside and states that he left for work around 730 this morning, and he states at that time the patient was acting normal, he states that the son came to worm picker the patient around 9 AM and he said at that time the patient was acting very angry, states he came home at 1230 today for lunch and he noted that she had an altered mental status and was not acting right. Patient does have a history of a stroke in February 2021 that affected the right frontal lobe right MCA distribution per old records, according to the old assessment by Dr. Berrios neurology, patient did not have any word finding or speech issues, but today she is having issues with word finding and cannot give me a detailed history of what happened. Patient speech is fluid but she cannot find the correct words to describe what is going on. Patient moves all extremities without any issues, she denies chest pain, shortness of air, or headache at this time. (ROCHELLE MAZA APRN) Review of Systems: Review of Systems: Constitutional: Denies fever or chills Eyes: Denies change in visual acuity HENT: Denies nasal congestion or sore throat Respiratory: Denies cough or shortness of breath Cardiovascular: Denies chest pain or edema GI: Denies abdominal pain, nausea, vomiting, bloody stools or diarrhea : Denies dysuria Musculoskeletal: Denies back pain or joint pain Integument: Denies rash Neurologic: Mental status changes Endocrine: Denies polyuria or polydipsia Lymphatic: Denies swollen glands Psychiatric: Denies depression or anxiety (ROCHELLE MAZA APRN) Current Medications: Current Meds: Current Medications Medications (Trade) Dose Ordered Sig/Jenna Start Time Stop Time Status Last Admin Dose Admin Info (Do NOT chart on this entry -- for MONITORING) 1 each PRN DAILY PRN 08/26/21 13:30 08/28/21 13:29 Iohexol (Omnipaque 350 Mg/ml) 100 ml 1X ONCE 08/26/21 13:30 08/26/21 13:31 DC 08/26/21 13:30 100 ML (ROCHELLE MAZA MEAT MOLDER) Allergies: Allergies: Allergies Coded Allergies Type Severity Reaction Last Updated Verified Penicillins Allergy Unknown 01/27/21 Yes aspirin Allergy Unknown 01/27/21 Yes codeine Allergy Unknown 01/27/21 Yes potassium Allergy Unknown 01/27/21 Yes (ROCHELLE MAZA MEAT MOLDER) Physical Exam: PE: Constitutional: 56-year-old female older than stated age, in moderate distress, non-toxic appearance. [] HENT: Normocephalic, atraumatic, bilateral external ears normal, oropharynx moist, no oral exudates, nose normal. [] Eyes: PERRLA, EOMI, conjunctiva normal, no discharge. [] Neck: Normal range of motion, no tenderness, supple, no stridor. [] Cardiovascular:Heart rate tachycardia Lungs & Thorax: Bilateral breath sounds diminished breath sounds Abdomen: Bowel sounds normal, soft, no tenderness, no masses, no pulsatile masses. [] Skin: Warm, dry, no erythema, no rash. [] Back: No tenderness, no CVA tenderness. [] Extremities: No tenderness, no cyanosis, no clubbing, ROM intact, no edema. [] Neurologic: Patient is alert and orientated x3 but does take her time to find the correct words to use, patient is unable to tell me her past medical history or medications, patient has no focal neuro, motor, sensory deficits at this time Psychologic: Affect normal, judgement abnormal, mood anxious. [] (ROCHELLE MAZA MEAT MOLDER) Current Patient Data: Labs: Laboratory Tests Test 08/26/21 13:10 08/26/21 13:13 Glucose (Fingerstick) 148 mg/dL (70-99) H White Blood Count 9.5 x10^3/uL (4.0-11.0) Red Blood Count 4.44 x10^6/uL (3.50-5.40) Hemoglobin 12.6 g/dL (12.0-15.5) Hematocrit 38.4 % (36.0-47.0) Mean Corpuscular Volume 87 fL (79-100) Mean Corpuscular Hemoglobin 28 pg (25-35) Mean Corpuscular Hemoglobin Concent 33 g/dL (31-37) Red Cell Distribution Width 14.6 % (11.5-14.5) H Platelet Count 498 x10^3/uL (140-400) H Neutrophils (%) (Auto) 73 % (31-73) Lymphocytes (%) (Auto) 17 % (24-48) L Monocytes (%) (Auto) 8 % (0-9) Eosinophils (%) (Auto) 1 % (0-3) Basophils (%) (Auto) 1 % (0-3) Neutrophils # (Auto) 6.9 x10^3uL (1.8-7.7) Lymphocytes # (Auto) 1.6 x10^3/uL (1.0-4.8) Monocytes # (Auto) 0.8 x10^3/uL (0.0-1.1) Eosinophils # (Auto) 0.1 x10^3/uL (0.0-0.7) Basophils # (Auto) 0.1 x10^3/uL (0.0-0.2) Prothrombin Time 11.6 SEC (9.4-11.4) H Prothrombin Time INR 1.1 (0.9-1.1) Activated Partial Thromboplast Time 24 SEC (23-33) Sodium Level 134 mmol/L (136-145) L Potassium Level 4.1 mmol/L (3.5-5.1) Chloride Level 101 mmol/L (98-107) Carbon Dioxide Level 24 mmol/L (21-32) Anion Gap 9 (6-14) Blood Urea Nitrogen 14 mg/dL (7-20) Creatinine 0.7 mg/dL (0.6-1.0) Estimated GFR (Cockcroft-Gault) 86.2 BUN/Creatinine Ratio 20 (6-20) Glucose Level 139 mg/dL (70-99) H Calcium Level 8.6 mg/dL (8.5-10.1) Total Bilirubin 0.9 mg/dL (0.2-1.0) Aspartate Amino Transferase (AST) 33 U/L (15-37) Alanine Aminotransferase (ALT) 56 U/L (14-59) Alkaline Phosphatase 140 U/L (46-116) H Troponin I High Sensitivity 513 ng/L (4-50) H Total Protein 6.7 g/dL (6.4-8.2) Albumin 2.6 g/dL (3.4-5.0) L Albumin/Globulin Ratio 0.6 (1.0-1.7) L Vital Signs: Vital Signs Date Time Temp Pulse Resp B/P (MAP) Pulse Ox O2 Delivery O2 Flow Rate FiO2 08/26/21 20:00 122 28 122/83 (96) 95 Room Air 08/26/21 19:00 121 28 115/72 (86) 94 Room Air 08/26/21 18:00 123 24 116/85 (95) 98 08/26/21 17:00 116 24 112/80 (91) 96 08/26/21 16:19 118 32 95/60 (72) 96 Room Air 08/26/21 15:00 117 26 113/80 (91) 98 Room Air 08/26/21 14:00 116 30 104/74 (84) 93 Room Air 08/26/21 13:06 98.2 121 34 111/81 (91) 95 Vital Signs Date Time Temp Pulse Resp B/P (MAP) Pulse Ox O2 Delivery O2 Flow Rate FiO2 08/26/21 13:06 98.2 121 34 111/81 (91) 95 (ROCHELLE MAZA APRN) EKG: EKG: EKG done at [address] Ventura at 1320 shows sinus tachycardia at a rate of 123 with no ectopy with a NM interval of 122 ms with a QTC of 463 [] (ROCHELLE MAZA APRN) Radiology/Procedures: Radiology/Procedures: REASON: altered mental status, OMNI 350, 75ml PROCEDURE: CT ANGIOGRAPHY HEAD AND NECK EXAM: CT angiography of the head and neck with intravenous contrast. HISTORY: Stroke. TECHNIQUE: Computed tomographic images of the head and neck were obtained following the administration of intravenous contrast according to angiography protocol. Multiplanar reformatting was performed and three dimensional maximum intensity projection images were obtained. *One or more of the following individualized dose reduction techniques were utilized for this examination: 1. Automated exposure control. 2. Adjustment of the mA and/or kV according to patient size. 3. Use of iterative reconstruction technique. COMPARISON: Noncontrast head CT obtained on the same date. FINDINGS: Evaluation of the upper thorax demonstrates a right pleural effusion and posterior right upper lobe infiltrate likely due to pneumonia. This is superimposed on emphysema. There is mild calcified atherosclerotic plaque at the origins of the aortic arch great vessels, with less than 50 percent stenosis. There is a standard aortic arch branching pattern. There is mild dilatation of the proximal right ICA distal to its origin, likely physiologic. No convincing aneurysm, dissection or significant stenosis is seen involving the carotid bifurcations. The distal right ICA is tortuous at the level of the skull base. The anterior commuting indicating artery and right posterior communicating artery are absent. The left posterior commuting indicating artery appears to be hypoplastic. There is significant decreased flow within the right middle cerebral artery branches within the anterior sylvian fissure, likely due to low flow or chronic occlusion given evidence of a chronic infarct in this distribution. The vertebral arteries are widely patent. The distal left vertebral artery is slightly hypoplastic distal to the origin of the posterior inferior cerebellar artery. There is no aneurysm or suspicious enhancing lesion. There is encephalomalacia within the right middle cerebral artery distribution due to chronic infarction. There are additional smaller areas of hypodensity within the cerebral white matter due to chronic small vessel disease or chronic infarcts. There is mild cerebral volume loss. There are degenerative changes involving the cervical spine. This results in severe left foraminal stenosis at C2-C3, mild to moderate right and moderate left foraminal stenosis at C3-C4, and severe right and mild left foraminal stenosis at C3-C6. IMPRESSION: 1. Decreased flow within the right middle cerebral artery branches within the anterior sylvian fissure, likely due to low flow secondary to a chronic infarct within this distribution. 2. No additional hemodynamically significant stenosis or large vessel occlusion. 3. Chronic infarct within the right middle cerebral artery distribution. There are additional areas of hypodensity due to chronic small vessel disease or chronic infarction. Note is made that MRI is more sensitive for acute infarction. 4. Small right pleural effusion and right lower lobe pneumonia. 5. Degenerative change involving the cervical spine, resulting in stenosis at the 4 mentioned levels. Findings were discussed with Dr. Maza at 1350 hours on 08/26/2021.[] REASON: altered mental status PROCEDURE: CT CODE STROKE HEAD WO EXAM: Head CT without contrast. HISTORY: Code stroke. Altered mental status. TECHNIQUE: Computed tomographic images of the head were obtained without contrast. *One or more of the following individualized dose reduction techniques were utilized for this examination: 1. Automated exposure control. 2. Adjustment of the mA and/or kV according to patient size. 3. Use of iterative reconstruction technique. COMPARISON: 02/14/2021. FINDINGS: There is no acute hemorrhage. There is encephalomalacia within the right middle cerebral artery distribution due to chronic infarction. There are few small areas of hypodensity within the cerebral white matter due to additional small infarcts or changes due to chronic small vessel disease. There is mild cerebral volume loss which is greater than expected for patient age. There is no suspicious calvarial lesion. The orbits, paranasal sinuses mastoid air cells are unremarkable. IMPRESSION: 1. No convincing acute intracranial finding. MRI is more sensitive for acute infarction. 2. Chronic infarct within the right MCA distribution. 3. Scattered focal areas of hypodensity within the cerebral white matter, most commonly due to chronic small vessel disease. The possibility of additional small chronic infarct is not excluded. 4. Cerebral volume loss. Findings were discussed with Dr. Blanco at 1328 hours on 08/26/2021. FOR INTERNAL CODING PURPOSES RESULT CODE: (C) (ROCHELLE MAZA APRN) Heart Score: C/O Chest Pain: N/A Risk Factors: Risk Factors: DM, Current or recent (<one month) smoker, HTN, HLP, family history of CAD, obesity. Risk Scores: Score 0 - 3: 2.5% MACE over next 6 weeks - Discharge Home Score 4 - 6: 20.3% MACE over next 6 weeks - Admit for Clinical Observation Score 7 - 10: 72.7% MACE over next 6 weeks - Early Invasive Strategies (ROCHELLE MAZA APRN) Course & Med Decision Making: Course & Med Decision Making Pertinent Labs and Imaging studies reviewed. (See chart for details) [address] Jansen about meeting patient to [facility] he states that the patient needs a higher level of cardiac care he is recommending [facility]. Nursing supervisor maintenance and custodians at [facility] was contacted as well as Dr. Hall. [address] Hall he is agreeable to admitting this patient at [facility] we have requested a bed for admission at [facility] through the nursing supervisor maintenance and custodians. [address] Dhillon cardiology about this patient and report given to him. (ROCHELLE MAZA APRN) Mohan Disclaimer: Mohan Disclaimer: This electronic medical record was generated, in whole or in part, using a voice recognition dictation system. (ROCHELLE MAZA APRN) Attending Co-Sign The patient was seen and interviewed as well as examined at the bedside. The chart was reviewed. The case was discussed. Agree with the plan of care. (CAROLINA VENTURA DO) Departure Departure: Impression: Primary Impression: Altered mental status Qualified Codes: R41.82 - Altered mental status, unspecified Additional Impressions: Elevated troponin Congestive heart failure (CHF) Qualified Codes: I50.9 - Heart failure, unspecified Lung mass Disposition: 02 SHORT TERM HOSPITAL Condition: STABLE Referrals: PCP,NO (PCP) ROCHELLE MAZA APRN Aug 26, 2021 14:22 CAROLINA VENTURA DO Aug 28, 2021 08:49
--- NOTE | 2021-08-26 14:50 | RAD ---
EXAM: Chest, single view. HISTORY: Altered mental status COMPARISON: 08/18/2021 FINDINGS: A frontal view of the chest is obtained. There is stable masslike consolidation within the right upper and lower lobes superimposed on diffuse increased interstitial opacity. No pleural effusi on or pneumothorax is seen. There is stable enlargement of the cardiac silhouette. IMPRESSION: Stable multifocal masslike consolidation within the right lung superimposed on suspected diffuse interstitial infiltrate. Follow-up to confirm resolution and exclude underlying neoplasm. Electronically signed by: Florencia Gill MD (08/26/2021 2:48 PM) [id number]
[2021-08-26 16:57] LABS: BACTERIA,URINE 0 /HPF (0-FEW); CLARITY,URINE CLEAR; COLOR,URINE YELLOW; GLUCOSE,URINE NEG (NEG); NITRITE,URINE NEG (NEG); RBC,URINE 0 /HPF (0-2); SQUAMOUS EPITHELIAL CELL,UR FEW /LPF; UROBILINOGEN,URINE 0.2 mg/dL (0.2 mg/dL); WBC,URINE OCC /HPF (0-4)
[2021-08-26 17:18] LABS: BARBITURATES NEG (NEG); BENZODIAZEPINES NEG (NEG); CANNABINOIDS POS (NEG); COCAINE NEG (NEG); METHADONE NEG (NEG); OPIATES NEG (NEG); PHENCYCLIDINE NEG (NEG)
[2021-08-26 17:27] LABS: AMPHETAMINE/METHAMPHETAMINE NEG (NEG)
[2021-08-26 20:00] VITALS: BP 122/83
== END 2021-08-26 20:54 | disposition short-term general hospital (02) ==
LOC: ER 13:05
DX: I11.0 Hypertensive heart disease with heart failure (principal); I50.9 Heart failure, unspecified; R77.8 Other specified abnormalities of plasma proteins; R91.8 Other nonspecific abnormal finding of lung field; F17.210 Nicotine dependence, cigarettes, uncomplicated; J44.9 Chronic obstructive pulmonary disease, unspecified; I10 Essential (primary) hypertension; Z20.822 Contact with and (suspected) exposure to COVID-19; Z86.73 Personal history of transient ischemic attack (TIA), and cerebral infarction without residual deficits; Z88.0 Allergy status to penicillin; Z88.6 Allergy status to analgesic agent; Z88.5 Allergy status to narcotic agent; Z88.8 Allergy status to other drugs, medicaments and biological substances
CPT/HCPCS: 36415; 70450; 70496; 70498; 71045; 80053; 80307; 81001; 82947; 83880; 84484; 85025; 85610; 85730; 87426; 93005; 96365; 99285; C9803; J1956; Q9967; U0003